=== PATIENT | female | born 1960 | race Caucasian/White ===

== ENCOUNTER 2016-12-28 23:23 | Inpatient (IN) | payer SELFPAY ==
[~2016-12-28] VITALS: Ht 154.9 cm; Wt 50.6 kg
[~2016-12-28 23:23] MED LIST: Z.0.NO CURRENT MEDS
[2016-12-28 23:29] VITALS: BP 89/59; PULSE 90
[2016-12-28] MEDS ORDERED: NALOXONE HCL 2 MG/2 ML VIAL ONE (23:34)
[2016-12-28] MEDS ORDERED: ETOMIDATE 20 MG/10 ML VIAL ONE (23:45)
[2016-12-28] MEDS ORDERED: SUCCINYLCHOLINE CHLORIDE 200 MG/10 ML VIAL ONE (23:45)
[2016-12-28] MEDS ORDERED: SODIUM CHLOR 0.9% 1000 ML INJ 1,000 ML IV ONE (23:53)
[2016-12-29] VITALS (28 sets, daily range): BP systolic 92–183; BP diastolic 70–130; PULSE 74–134; RESP 14–24; TEMP 97.1–99.1; O2SAT 94–100
[2016-12-29] MEDS ORDERED: SODIUM CHLORIDE 0.9% FLUSH 10 ML FLUSH IVF PRN
[2016-12-29] MEDS ORDERED: SUCCINYLCHOLINE CHLORIDE 200 MG/10 ML VIAL IVP ONE
[2016-12-29] MEDS ORDERED: ETOMIDATE 20 MG/10 ML VIAL IVP ONE
[2016-12-29 00:37] LABS: AUTOMATED NEUTROPHIL # 1.6 TH/MM3 (1.8-7.7); BASOPHIL # 0.1 TH/MM3 (0-0.2); BASOPHIL % 1.5 % (0.0-2.0); EOSINOPHIL # 0.1 TH/MM3 (0-0.4); HEMO FLAGS DIFF FINAL; LYMPH % 47.3 % (9.0-44.0); LYMPHOCYTE # 1.9 TH/MM3 (1.0-4.8); MEAN CELL VOLUME 102.4 FL (80.0-100.0); MEAN CORPUSCULAR HEMOGLOBIN 34.8 PG (27.0-34.0); MONO % 8.5 % (0.0-8.0); NEUT % 39.7 % (16.0-70.0); PLATELET COUNT 115 TH/MM3 (150-450); RED BLOOD COUNT 3.71 MIL/MM3 (4.00-5.30); RED CELL DISTRIBUTION WIDTH 12.9 % (11.6-17.2)
[2016-12-29] MEDS ORDERED: ETOMIDATE 20 MG/10 ML VIAL IV PUSH ONE (00:45)
[2016-12-29 00:52] LABS: APTT (PATIENT) 27.4 SEC (24.3-30.1); PROTHROMBIN TIME - PATIENT 10.9 SEC (9.8-11.6)
[2016-12-29 00:53] LABS: AMPHETAMINE, URINE NEG (NEG); BARBITURATES, URINE NEG (NEG); COCAINE, URINE NEG (NEG)
[2016-12-29 00:55] LABS: BACTERIA, URINE RARE /hpf; BLOOD, URINE NEG (NEG); COMMENT (UR) CULT NOT INDICATED; CULTURE IF INDICATED CULT NOT INDICATED; GLUCOSE,URINE NEG (NEG); HYALINE CAST, URINE 11 /lpf (RARE); KETONE, URINE NEG (NEG); MUCUS URINE FEW /lpf (OCC); NITRITE,URINE NEG (NEG); URINE COLOR YELLOW (YELLW/STRAW)
--- NOTE | 2016-12-29 01:03 | RADRPT ---
EXAM DATE/TIME: 12/28/2016 23:49 [place] COMPARISON: No previous studies available for comparison. INDICATIONS : Post intubation. MEDICAL HISTORY : None. SURGICAL HISTORY : None. ENCOUNTER: Initial ACUITY: 1 day PAIN SCORE: Non-responsive. LOCATION: Bilateral chest FINDINGS: A single AP supine view of the chest was obtained and demonstrates an endotracheal tube in place with the tip at the level of the fredy pointed into the right mainstem bronchus. There are no confluent infiltrates or effusions. Nasogastric tube is seen coursing through the esophagus and into the stomac h. The heart size is mildly prominent. There are no confluent infiltrates or effusions. The bony thor ax is intact. Overlying electrocardiogram leads and oxygen tubing are present. CONCLUSION: 1. Interval intubation with endotracheal tube at the level of the fredy pointing to right mainstem b ronchus. This could be withdrawn 2-3 cm. 2. Mild cardiomegaly with no acute cardiopulmonary disease. Matthieu Parada MD on December 29, 2016 at 1:00 Board Certified Radiologist. This report was verified electronically.
[2016-12-29 01:04] LABS: ANION GAP 12 MEQ/L (5-15); AST (GOT) 93 U/L (15-37); BICARBONATE 25.9 MEQ/L (21.0-32.0); BLOOD UREA NITROGEN 5 MG/DL (7-18); CHLORIDE 105 MEQ/L (98-107); GLOMERULAR FILTRATION RATE 108 ML/MIN (>89); MAGNESIUM 1.3 MG/DL (1.5-2.5); SODIUM (NA) 143 MEQ/L (136-145)
[2016-12-29 01:10] LABS: ACETAMINOPHEN LESS THAN 2.0 MCG/ML (10.0-30.0); ALKALINE PHOSPHATASE 59 U/L (45-117); ALT (GPT) 79 U/L (10-53); TOTAL BILIRUBIN ADULT 0.2 MG/DL (0.2-1.0)
[2016-12-29 01:30] LABS: CREATINE KINASE 92 U/L (26-192)
[2016-12-29 01:31] LABS: BLOOD GAS BASE EXCESS -3.2 mmol/L (-2-2); BLOOD GAS CARBOXYHEMOGLOBIN 4.3 % (0-4); BLOOD GAS HCO3 21 mmol/L (22-26); BLOOD GAS METHEMOGLOBIN 0.8 % (0-2); BLOOD GAS O2 HGB SATURATION 94 % (90-100); BLOOD GAS OXYGEN CONTENT 18.5 Vol % (12.0-20.0); BLOOD GAS PCO2 38 mmHg (38-42); BLOOD GAS PO2 233 mmHG (61-120); BLOOD GAS TOTAL HGB 13.6 G/DL (12.0-16.0); TEMP CORR TO 98.6
[2016-12-29 01:32] LABS: CRITICAL VALUE NO; DRAW SITE RT FEMORAL; FIO2 50 %; NUMBER OF ARTERIAL PUNCTURES 1; OXYGEN DEVICE VENTILATOR
[2016-12-29 01:33] LABS: STAT YES
--- NOTE | 2016-12-29 01:40 | PD ---
HPI Chief Complaint: OD/ Ingestion Time Seen by Provider: 23:53 Travel History International Travel<30 days: No Contact w/Intl Traveler<30days: No (travel history is unable to be obtained) History of Present Illness HPI The patient is a 56 year old female who presents to the [facility] emergency department with a history of being found somnolent by her daughter prior to arrival. The patient was found by her daughter. According to ambulance services the patient does have a history of prior overdose. They are unsure whether the patient intentionally tried to harm herself. Her daughter is not available currently for further history on the patient. The patient's history is obtained through the electronic medical record. The patient on arrival is unresponsive. The patient has snoring respirations. The patient is maintaining her O2 saturation, however she has a diminished gag reflex. The patient has minimal response, flexion to painful stimulation. Review of systems was unable to be obtained in this patient. PFSH Past Medical History Narrative Medical The patient's past medical history is obtained through the electronic medical record and consists of tobacco use, acid reflux, daily alcohol intake Medical History: Unable to Obtain Asthma: No Blood Disorders: No Anxiety: Yes Depression: Yes Cancer: No Cardiovascular Problems: No Diminished Hearing: Yes (EAR INFECTION ON EAR DROPS MEDS) GERD: Yes Glaucoma: No Immune Disorder: No Musculoskeletal: No Neurologic: No Psychiatric: Yes Reproductive: No Respiratory: Yes Radiation Therapy: No Thyroid Disease: No ?: Unknown : 2 Para: 2 Miscarriage: 0 : 0 Tubal Ligation: Yes Past Surgical History Narrative Surgical The patient's past surgical history is significant for bilateral tubal ligation. Surgical History: Unable to Obtain Abdominal Surgery: No Cardiac Surgery: No Ear Surgery: No Endocrine Surgery: No Eye Surgery: No Gynecologic Surgery: No Thoracic Surgery: No Social History Alcohol Use: No (unable to obtain) Tobacco Use: No (unable to obtain) Substance Use: No (unable to obtain) Allergies-Medications (Allergen,Severity, Reaction): Coded Allergies: No Known Allergies (Verified , 12/28/16) Reported Meds & Prescriptions Reported Meds & Active Scripts Active Active Prescriptions or Reported Medications Unobtainable Review of Systems ROS Limitations: Unresponsive Physical Exam Narrative General: The patient is a well-developed well-nourished female with snoring respirations on arrival, otherwise in no acute distress. Head and Neck exam: Head is normocephalic atraumatic. Eyes: EOMI, pupils are equal round and reactive to light. Nose: Midline septum with pink mucous membranes Mouth: Dentition unremarkable. Moist mucus membranes. Posterior oropharynx is not erythematous. No tonsillar hypertrophy. Uvula midline. Airway patent. Neck: No palpable lymphadenopathy. No nuchal rigidity. No thyromegaly. Cardiovascular: Regular rate and rhythm without murmurs, gallops, or rubs. No pulse deficit to the extremities and simultaneous auscultation and palpation of her radial artery. Lungs: Clear to auscultation bilaterally. No wheezes, rhonchi, or rales. She is noted to have sonorous respirations. Abdomen: Soft, without tenderness to palpation in all 4 quadrants of the abdomen. No guarding, rebound, or rigidity. Normal bowel sounds are audible. No tenderness on palpation of McBurney's point. Extremities: No clubbing, cyanosis, or edema. 2+ pulses in all 4 extremities. Back: No costovertebral angle tenderness to palpation. Neurologic Exam: The patient is somnolent on examination with a diminished gag reflex. No evidence of facial asymmetry. The patient flexes slightly to painful stimulation, otherwise she does not open her eyes or move. Skin Exam: No rash noted. Intact skin that is warm and dry. Data Data Last Documented VS Vital Signs Date Time Temp Pulse Resp B/P Pulse Ox O2 Delivery O2 Flow Rate FiO2 12/29/16 01:36 83 16 156/117 100 Ventilator 35 12/29/16 00:13 10 Orders Naloxone Inj (Narcan Inj) (12/28/16 23:34) Succinylcholine Inj (Quelicin Inj) (12/28/16 23:45) Etomidate Inj (Amidate Inj) (12/28/16 23:45) Chest, Single Ap (12/28/16 23:53) Arterial Blood Gas (Abg) (12/28/16 23:53) Ecg Monitoring (12/28/16 23:53) Iv Access Insert/Monitor (12/28/16 23:53) Oximetry (12/28/16 23:53) Etomidate Inj (Amidate Inj) (12/29/16 00:00) Succinylcholine Inj (Quelicin Inj) (12/29/16 00:00) Sodium Chloride 0.9% Flush (Ns Flush) (12/29/16 00:00) Sodium Chlor 0.9% 1000 Ml Inj (Ns 1000 M (12/28/16 23:53) Electrocardiogram (12/28/16 23:53) Complete Blood Count With Diff (12/28/16 23:53) Comprehensive Metabolic Panel (12/28/16 23:53) Creatine Kinase (Cpk) (12/28/16 23:53) Ckmb (Isoenzyme) Profile (12/28/16 23:53) Troponin I (12/28/16 23:53) B-Type Natriuretic Peptide (12/28/16 23:53) Prothrombin Time / Inr (Pt) (12/28/16 23:53) Act Partial Throm Time (Ptt) (12/28/16 23:53) Lipase (12/28/16 23:53) Urinalysis - C+S If Indicated (12/28/16 23:53) Magnesium (Mg) (12/28/16 23:53) Ammonia (12/28/16 23:53) Ct Brain W/O Iv Contrast(Rout) (12/28/16 23:53) Urinary Catheter Insert/Apply (12/28/16 23:53) Trang-Gastric Tube Insert/Mon (12/28/16 23:53) Drug Screen, Random Urine (12/28/16 23:53) Alcohol (Ethanol) (12/28/16 23:53) Salicylates (Aspirin) (12/28/16 23:53) Tylenol (Acetaminophen) (12/28/16 23:53) Etomidate Inj (Amidate Inj) (12/29/16 00:45) Propofol 1000 Mg/100 Ml Inj (Diprivan 10 (12/29/16 01:45) ^ Infusion (12/29/16 01:33) RASS (12/29/16 01:33) Neurological Rass Scale TIANA.Q2H (12/29/16 01:33) Midazolam Inj (Versed Inj) (12/29/16 01:45) Potassium Chlor 20 Meq Premix (Kcl 20 Me (12/29/16 01:45) Admit Order (Ed Use Only) (12/29/16 01:37) Phosphorus (Po4) (12/29/16 00:15) Labs Laboratory Tests Test 12/29/16 12/29/16 00:15 01:05 White Blood Count 4.0 TH/MM3 Red Blood Count 3.71 MIL/MM3 Hemoglobin 12.9 GM/DL Hematocrit 38.0 % Mean Corpuscular Volume 102.4 FL Mean Corpuscular Hemoglobin 34.8 PG Mean Corpuscular Hemoglobin 34.0 % Concent Red Cell Distribution Width 12.9 % Platelet Count 115 TH/MM3 Mean Platelet Volume 8.6 FL Neutrophils (%) (Auto) 39.7 % Lymphocytes (%) (Auto) 47.3 % Monocytes (%) (Auto) 8.5 % Eosinophils (%) (Auto) 3.0 % Basophils (%) (Auto) 1.5 % Neutrophils # (Auto) 1.6 TH/MM3 Lymphocytes # (Auto) 1.9 TH/MM3 Monocytes # (Auto) 0.3 TH/MM3 Eosinophils # (Auto) 0.1 TH/MM3 Basophils # (Auto) 0.1 TH/MM3 CBC Comment DIFF FINAL Differential Comment Prothrombin Time 10.9 SEC Prothromb Time International 1.0 RATIO Ratio Activated Partial 27.4 SEC Thromboplast Time Urine Color YELLOW Urine Turbidity CLEAR Urine pH 6.0 Urine Specific [place] 1.014 Urine Protein TRACE mg/dL Urine Glucose (UA) NEG mg/dL Urine Ketones NEG mg/dL Urine Occult Blood NEG Urine Nitrite NEG Urine Bilirubin NEG Urine Urobilinogen LESS THAN 2.0 MG/DL Urine Leukocyte Esterase NEG Urine RBC 1 /hpf Urine WBC 2 /hpf Urine Bacteria RARE /hpf Urine Hyaline Casts 11 /lpf Urine Mucus FEW /lpf Microscopic Urinalysis Comment CULT NOT INDICATED Sodium Level 143 MEQ/L Potassium Level 3.0 MEQ/L Chloride Level 105 MEQ/L Carbon Dioxide Level 25.9 MEQ/L Anion Gap 12 MEQ/L Blood Urea Nitrogen 5 MG/DL Creatinine 0.58 MG/DL Estimat Glomerular Filtration 108 ML/MIN Rate Random Glucose 77 MG/DL Calcium Level 8.0 MG/DL Phosphorus Level 3.4 MG/DL Magnesium Level 1.3 MG/DL Total Bilirubin 0.2 MG/DL Aspartate Amino Transf 93 U/L (AST/SGOT) Alanine Aminotransferase 79 U/L (ALT/SGPT) Alkaline Phosphatase 59 U/L Ammonia 29 MCMOL/L Total Creatine Kinase 92 U/L Troponin I 0.38 NG/ML B-Type Natriuretic Peptide 63 PG/ML Total Protein 7.0 GM/DL Albumin 3.4 GM/DL Lipase 139 U/L Salicylates Level 3.3 MG/DL Urine Opiates Screen NEG Acetaminophen Level LESS THAN 2.0 MCG/ML Urine Barbiturates Screen NEG Urine Amphetamines Screen NEG Urine Benzodiazepines Screen NEG Urine Cocaine Screen NEG Urine Cannabinoids Screen NEG Ethyl Alcohol Level 295 MG/DL Blood Gas Puncture Site RT FEMORAL Blood Gas Patient Temperature 98.6 Blood Gas HCO3 21 mmol/L Blood Gas Base Excess -3.2 mmol/L Blood Gas Oxygen Saturation 94 % Arterial Blood pH 7.37 Arterial Blood Partial 38 mmHg Pressure CO2 Arterial Blood Partial 233 mmHG Pressure O2 Arterial Blood Oxygen Content 18.5 Vol % Arterial Blood 4.3 % Carboxyhemoglobin Arterial Blood Methemoglobin 0.8 % Blood Gas Hemoglobin 13.6 G/DL Oxygen Delivery Device VENTILATOR Blood Gas Ventilator Setting Blood Gas Inspired Oxygen 50 % [facility] Medical Decision Making Medical Screen Exam Complete: Yes Emergency Medical Condition: Yes Medical Record Reviewed: Yes Interpretation(s) Last Impressions Head CT 12/28/162352 Signed Impressions: Service Date/Time: Thursday, December 29, 2016 06:13 - CONCLUSION: 1. No acute hemorrhage, mass or infarction. 2. Mucosal thickening in the ethmoidal air cells. Matthieu Parada MD Chest X-Ray 12/28/16 174 Signed Impressions: Service Date/Time: Wednesday, December 28, 2016 23:49 - CONCLUSION: 1. Interval intubation with endotracheal tube at the level of the fredy pointing to right mainstem bronchus. This could be withdrawn 2-3 cm. 2. Mild cardiomegaly with no acute cardiopulmonary disease. Matthieu Parada MD Differential Diagnosis Intracranial hemorrhage, versus intracranial mass, versus metabolic encephalopathy, versus intentional overdose, versus accidental overdose Narrative Course During the course of the patients emergency department visit, the patients history, examination, and differential diagnosis were reviewed with the patient. The patient had IV access obtained and blood work sent for analysis. The patient's electronic magento web developer with oximetry and blood pressure monitoring. Ambulance services initially reported that the patient had a response to Narcan, therefore Narcan 2 mg IV was given 1. The patient had no significant response to this administration. The patient was prepped for RSI. The patient was initially provided normal saline 1 L IV fluid bolus. The patient was given etomidate and succinylcholine for intubation. After intubation, the patient had an OG tube placed. The patient also had Toscano catheter placed to gravity. The patients laboratory studies were reviewed and remarkable for a white count of 4, hemoglobin 12.9, platelets 115 with 47.3 lymphocytes, monocytes 8.5, CMP is remarkable for potassium of 3, BUN 5, calcium 8.0, magnesium 1.3, AST 93, ALT 79, CPK is 92, troponin I 0.38, BNP is 63, lipase 139, ammonia level is 29, PT PTT within normal limits. Urine drug screen is negative, acetaminophen less than 2, salicylate 3.3, alcohol level CCXCV. ABG reveals a pH of 7.37, PCO2 38 , O2 233, bicarbonate 21. This was done while the patient was on a ventilator. Her FiO2 was decreased down to 35%. Urinalysis showed rare bacteria, otherwise unremarkable Radiology studies were reviewed and remarkable for a chest x-ray that shows interval intubation with endotracheal tube at the level of the fredy pointing to the right mainstem bronchus this could be withdrawn 2-3 cm. Mild cardiomegaly with no acute cardiopulmonary disease. The patient's endotracheal tube was withdrawn 2-3 cm by respiratory therapy. The patient began to cough and gag against the ventilator and endotracheal tube. The patient was provided propofol for sedation on the ventilator. The patients results were discussed with the patient, including the plan of care. I explained that further testing and/ or monitoring is indicated based on the patients history, examination, and/ or laboratory findings. Therefore, I recommended admission for additional evaluation. The patient expressed understanding and was agreeable with this plan. The patient was admitted to the hospital in guarded condition and sent to a bed under the care of the services advisor. Critical Care Narrative Aggregate critical care time was 33 minutes. Time to perform other separately billable procedures was not included in the critical care time. My time did not include minutes spent treating any other patients simultaneously or on activities that did not directly contribute to the patient's treatment. The services I provided to this patient were to treat and/or prevent clinically significant deterioration that could result in: Respiratory failure, hypoxic brain injury I provided critical care services requiring my management, as noted below: Chart data review, documentation time, medication orders and management, vital sign assessments/reviewing monitor data, ordering and reviewing lab tests, ordering and interpreting/reviewing x-rays and diagnostic studies, care of the patient and discussion of the patient with the admitting physicians. Procedures Procedure Narrative The patient was put in optimal position for the procedure. Rapid sequence intubation was initiated by me using 20 milligrams of etomidate IV and 100 milligrams of succinylcholine IV. The patient was intubated with a 8 cuffed endotracheal tube while using C-Mac. Tube placement was confirmed by visualization of the tube and balloon passing through the cords, capnometry and subsequent chest x-ray. Breath sounds were equal and well aerated bilaterally postintubation. No breath sounds over stomach. Patient tolerated procedure well. Physician Communication Physician Communication The patient's case was discussed with Dr. High who did agree to admit the patient for further evaluation and treatment at this time. Diagnosis Primary Impression: Altered mental status Qualified Code: R40.1 - Stupor Additional Impression: Alcohol intoxication Qualified Code: F10.929 - Alcohol intoxication, with unspecified complication Admitting Information Admitting Physician Requests: Admit Scripts Unable to Obtain Active Prescriptions or Reported Meds Rosa Miller MD Dec 29, 2016 01:40
[2016-12-29] MEDS ORDERED: MAGNESIUM OXIDE 400 MG TAB PO PRN (01:45)
[2016-12-29] MEDS ORDERED: SODIUM CHLORIDE 0.9% FLUSH 10 ML FLUSH PRN (01:45)
[2016-12-29] MEDS ORDERED: ACETAMINOPHEN 325 MG TAB PO PRN (01:45)
[2016-12-29] MEDS ORDERED: POTASSIUM CHLOR 20 MEQ PREMIX 100 ML IV PRN ×2 (01:45)
[2016-12-29] MEDS ORDERED: MISCELLANEOUS NURSING INFORMATION XX SCH (01:45)
[2016-12-29] MEDS ORDERED: POTASSIUM CHLORIDE 25 MEQ EFFERVESCENT TAB PO PRN (01:45)
[2016-12-29] MEDS ORDERED: SODIUM PHOSPHATE INJ 30 MMOL in SODIUM CHLOR 0.9% 250 ML INJ 240 ML IV PRN (01:45)
[2016-12-29] MEDS ORDERED: SENNOSIDES 8.6 MG TAB PO PRN (01:45)
[2016-12-29] MEDS ORDERED: POTASSIUM CHLOR 20 MEQ PREMIX 100 ML IV ONE (01:45)
[2016-12-29] MEDS ORDERED: LACTULOSE SYRUP 20 GM/30 ML CUP PO PRN (01:45)
[2016-12-29] MEDS ORDERED: MAGNESIUM SULFATE INJ 2 GM in SODIUM CHLORIDE 0.9% INJ 96 ML IV PRN (01:45)
[2016-12-29] MEDS ORDERED: PROPOFOL 1000 MG/100 ML INJ 100 ML IV SCH ×2 (01:45)
[2016-12-29] MEDS ORDERED: POTASSIUM PHOSPHATE MONOBASIC 500 MG TAB PO/TUBE PRN (01:45)
[2016-12-29] MEDS ORDERED: POTASSIUM PHOSPHATE MONOBASIC 500 MG TAB PO PRN (01:45)
[2016-12-29] MEDS ORDERED: CHLORHEXIDINE GLUCONATE 2 % 1 PACK (2 CLOTHS) TOP PRN (01:45)
[2016-12-29] MEDS ORDERED: POTASSIUM PHOSPHATE INJ 30 MMOL in SODIUM CHLOR 0.9% 250 ML INJ 250 ML IV PRN (01:45)
[2016-12-29] MEDS ORDERED: POTASSIUM CHLOR 40 MEQ PREMIX 100 ML IV PRN ×2 (01:45)
[2016-12-29] MEDS ORDERED: MAGNESIUM SULFATE INJ 4 GM in SODIUM CHLORIDE 0.9% INJ 92 ML IV PRN (01:45)
[2016-12-29] MEDS ORDERED: BISACODYL 10 MG SUPP RECTAL PRN (01:45)
[2016-12-29] MEDS ORDERED: MORPHINE SULFATE 4 MG/ML INJ IV PRN (01:45)
[2016-12-29] MEDS ORDERED: RESP: ALBUTEROL 2.5 MG/IPRATROPIUM 0.5 MG NEB (PRN) INH (01:45)
[2016-12-29] MEDS ORDERED: MAGNESIUM HYDROXIDE SUSP 30 ML CUP PO PRN (01:45)
[2016-12-29] MEDS ORDERED: MIDAZOLAM HCL 2 MG/2 ML VIAL IV PUSH ONE (01:45)
--- NOTE | 2016-12-29 01:48 | HHI.HP ---
HPI Service Critical Care Medicine Primary Care Physician Sampson Perez M.D. Admission Diagnosis AMS, Etoh intoxication Diagnosis: Travel History International Travel<30 Days: No Contact w/Intl Traveler <30 Da: No Traveled to Known Affected Are: No History of Present Illness 56-year-old female with previous history of intentional overdose 7 years ago, history of daily alcohol use, was found by her daughter unresponsive. Per daughter she wasn't arousable to painful stimuli and EMS was called. The daughter found open bottle of Wellbutrin that was prescribed in 2013; however she's not sure how many pills were there before if any. Patient was intubated in the emergency department for an airway protection. Review of Systems ROS Unobtainable patient is unresponsive and intubated Past Family Social History Allergies: Coded Allergies: No Known Allergies (Verified , 12/28/16) Past Medical History GERD History of intentional overdose Diverticulosis Past Surgical History Unobtainable Reported Medications Unobtainable Active Ordered Medications Current Medications Medications (Trade) Dose Ordered Sig/Yasmine Route PRN Reason Start Time Stop Time Status Last Admin Dose Admin Sodium Chloride 2 ml 2 ml UNSCH PRN IVF FLUSH AFTER USING IV ACCESS 12/29/16 00:00 Propofol 100 ml @ 0 mls/hr TITRATE IV 12/29/16 01:45 12/29/16 01:45 Potassium Chloride 100 ml @ 50 mls/hr BOLUS ONCE IV 12/29/16 01:45 12/29/16 03:44 12/29/16 01:58 Potassium Chloride 100 ml @ 50 mls/hr Q2H PRN IV For Potassium 2.8 - 3.2 mEq/L 12/29/16 01:45 Potassium Chloride (KCl 20 Meq Premix Inj) 100 ml @ 50 mls/hr Q2H PRN IV For Potassium 2.8 - 3.2 mEq/L 12/29/16 01:45 Potassium Bicarb/ Potassium Chloride 50 meq 50 meq UNSCH PRN PO For Potassium 3.3 - 3.5 mEq/L 12/29/16 01:45 Potassium Chloride 100 ml @ 25 mls/hr UNSCH PRN IV For Potassium 3.3 - 3.5 mEq/L 12/29/16 01:45 Potassium Chloride 100 ml @ 50 mls/hr Q2H PRN IV For Potassium 3.3 - 3.5 mEq/L 12/29/16 01:45 Magnesium Sulfate/ Sodium Chloride (Magnesium Sulfate Inj/NS Inj) 100 ml @ 50 mls/hr UNSCH PRN IV For Magnesium 0.9 - 1.1 mg/dL 12/29/16 01:45 Magnesium Oxide 800 mg 800 mg UNSCH PRN PO For Magnesium 1.2 - 1.6 mg/dL 12/29/16 01:45 Magnesium Sulfate/ Sodium Chloride (Magnesium Sulfate Inj/NS Inj) 100 ml @ 50 mls/hr UNSCH PRN IV For Magnesium 1.2 - 1.6 mg/dL 12/29/16 01:45 Potassium Phosphate 2000 mg 2,000 mg Q4H PRN PO For Phosphorus < 2.5 mg/dL 12/29/16 01:45 Sodium Phosphate/ Sodium Chloride (Sodium Phosphate Inj/NS 250 ml Inj) 250 ml @ 42 mls/hr UNSCH PRN IV For Phosphorus < 2.5 mg/dL 12/29/16 01:45 Potassium Phosphate 2000 mg 2,000 mg UNSCH PRN PO/TUBE SEE LABEL COMMENTS 12/29/16 01:45 Potassium Phosphate 30 mmol/ Sodium Chloride 260 ml @ 42 mls/hr UNSCH PRN IV SEE LABEL COMMENTS 12/29/16 01:45 Sodium Chloride (NS 1000 ml Inj) 1,000 ml @ 124 mls/hr Q8H4M IV 12/29/16 01:43 12/29/16 01:58 Sodium Chloride (NS Flush) 2 ml UNSCH PRN .XX FLUSH AFTER USING IV ACCESS 12/29/16 01:45 Sodium Chloride (NS Flush) 2 ml BID .XX 12/29/16 09:00 Acetaminophen (Tylenol) 650 mg Q6H PRN PO PAIN 1-10 AND/OR FEVER >101F 12/29/16 01:45 Morphine Sulfate (Morphine Inj) 2 mg Q2H PRN IV PAIN SCALE 6 TO 10 12/29/16 01:45 Famotidine (Pepcid Inj) 20 mg Q12HR IV PUSH 12/29/16 09:00 Lorazepam (Ativan Inj) 1 mg Q1H PRN IV Agitation/Sedation 12/29/16 01:45 Heparin Sodium (Porcine) (Heparin Inj) 5,000 units Q8HR SQ 12/29/16 06:00 Miscellaneous Information 1 Q361D XX 12/29/16 01:45 Chlorhexidine Gluconate (Chlorhexidine 2% Cloth) 3 pack Taper DAILY@04 TOP 12/29/16 04:00 12/25/17 03:59 Chlorhexidine Gluconate (Chlorhexidine 2% Cloth) 3 pack UNSCH PRN TOP HYGIENIC CARE 12/29/16 01:45 Senna/Docusate Sodium (Barbie-Colace) 1 tab BID PO 12/29/16 09:00 Magnesium Hydroxide (Milk Of Magnesia Liq) 30 ml Q12H PRN PO MILD - MODERATE CONSTIPATION 12/29/16 01:45 Sennosides (Senokot) 17.2 mg Q12H PRN PO MODERATE - SEVERE CONSTIPATION 12/29/16 01:45 Bisacodyl (Dulcolax Supp) 10 mg DAILY PRN RECTAL SEVERE CONSITIPATION 12/29/16 01:45 Lactulose 30 ml 30 ml DAILY PRN PO SEVERE CONSITIPATION 12/29/16 01:45 Propofol (Diprivan 1000 Mg/100ml Inj) 100 ml @ 0 mls/hr TITRATE IV 12/29/16 01:45 Family History Father had CABG at 62 Sister had cervical cancer Social History Per family report she drinks daily, smokes one pack per day, no illicit drug abuse Physical Exam Vital Signs Vital Signs Date Time Temp Pulse Resp B/P Pulse Ox O2 Delivery O2 Flow Rate FiO2 12/29/16 01:40 100 35 12/29/16 01:36 83 16 156/117 100 Ventilator 35 12/29/16 00:31 81 16 147/100 100 Ventilator 50 12/29/16 00:26 50 12/29/16 00:13 99 50 12/29/16 00:13 134 18 183/130 99 Nasal Cannula 10 12/29/16 00:10 134 18 160/105 97 Nasal Cannula 10 12/29/16 00:00 98 Room Air 12/28/16 23:34 12 99 12/28/16 23:29 90 89/59 Physical Exam GENERAL: Middle-aged woman elderly-appearing sedated and intubated SKIN: Warm and dry. HEAD: Normocephalic. EYES: No scleral icterus. No injection or drainage. NECK: Supple, trachea midline. No JVD or lymphadenopathy. Intubated CARDIOVASCULAR: Regular rate and rhythm without murmurs, gallops, or rubs. RESPIRATORY: Breath sounds equal bilaterally. No accessory muscle use. GASTROINTESTINAL: Abdomen soft, non-tender, nondistended. MUSCULOSKELETAL: No cyanosis, or edema. BACK: Nontender without obvious deformity. No CVA tenderness. NEURO EXAM: Mental Status: The patient is sedated and intubated. Cranial Nerves: Visual acuity unable to examine. Pupils are round, 2 mm and briskly reactive to light. Extraocular movements unable to examine. Reflexes: Biceps, brachioradialis, triceps, patellar, and Achilles are 2/4 bilaterally. No clonus. Plantar reflex is downward bilaterally. Sensation: Sensation unable to examine Motor: Good muscle tone. Localizes briskly to pain from all 4 extremities Cerebellar: Unable to examine Laboratory Laboratory Tests Test 12/29/16 12/29/16 00:15 01:05 White Blood Count 4.0 Red Blood Count 3.71 Hemoglobin 12.9 Hematocrit 38.0 Mean Corpuscular Volume 102.4 Mean Corpuscular Hemoglobin 34.8 Mean Corpuscular Hemoglobin 34.0 Concent Red Cell Distribution Width 12.9 Platelet Count 115 Mean Platelet Volume 8.6 Neutrophils (%) (Auto) 39.7 Lymphocytes (%) (Auto) 47.3 Monocytes (%) (Auto) 8.5 Eosinophils (%) (Auto) 3.0 Basophils (%) (Auto) 1.5 Neutrophils # (Auto) 1.6 Lymphocytes # (Auto) 1.9 Monocytes # (Auto) 0.3 Eosinophils # (Auto) 0.1 Basophils # (Auto) 0.1 CBC Comment DIFF FINAL Differential Comment Prothrombin Time 10.9 Prothromb Time International 1.0 Ratio Activated Partial 27.4 Thromboplast Time Urine Color YELLOW Urine Turbidity CLEAR Urine pH 6.0 Urine Specific [place] 1.014 Urine Protein TRACE Urine Glucose (UA) NEG Urine Ketones NEG Urine Occult Blood NEG Urine Nitrite NEG Urine Bilirubin NEG Urine Urobilinogen LESS THAN 2.0 Urine Leukocyte Esterase NEG Urine RBC 1 Urine WBC 2 Urine Bacteria RARE Urine Hyaline Casts 11 Urine Mucus FEW Microscopic Urinalysis Comment CULT NOT INDICATED Sodium Level 143 Potassium Level 3.0 Chloride Level 105 Carbon Dioxide Level 25.9 Anion Gap 12 Blood Urea Nitrogen 5 Creatinine 0.58 Estimat Glomerular Filtration 108 Rate Random Glucose 77 Calcium Level 8.0 Magnesium Level 1.3 Total Bilirubin 0.2 Aspartate Amino Transf 93 (AST/SGOT) Alanine Aminotransferase 79 (ALT/SGPT) Alkaline Phosphatase 59 Ammonia 29 Total Creatine Kinase 92 Troponin I 0.38 B-Type Natriuretic Peptide 63 Total Protein 7.0 Albumin 3.4 Lipase 139 Salicylates Level 3.3 Urine Opiates Screen NEG Acetaminophen Level LESS THAN 2.0 Urine Barbiturates Screen NEG Urine Amphetamines Screen NEG Urine Benzodiazepines Screen NEG Urine Cocaine Screen NEG Urine Cannabinoids Screen NEG Ethyl Alcohol Level 295 Blood Gas Puncture Site RT FEMORAL Blood Gas Patient Temperature 98.6 Blood Gas HCO3 21 Blood Gas Base Excess -3.2 Blood Gas Oxygen Saturation 94 Arterial Blood pH 7.37 Arterial Blood Partial 38 Pressure CO2 Arterial Blood Partial 233 Pressure O2 Arterial Blood Oxygen Content 18.5 Arterial Blood 4.3 Carboxyhemoglobin Arterial Blood Methemoglobin 0.8 Blood Gas Hemoglobin 13.6 Oxygen Delivery Device VENTILATOR Blood Gas Ventilator Setting Blood Gas Inspired Oxygen 50 Result Diagram: 12/29/16 0015 12/29/16 0015 Imaging Last 24 hours Impressions Chest X-Ray 12/28/16 [id number] Signed Impressions: Service Date/Time: Wednesday, December 28, 2016 23:49 - CONCLUSION: 1. Interval intubation with endotracheal tube at the level of the fredy pointing to right mainstem bronchus. This could be withdrawn 2-3 cm. 2. Mild cardiomegaly with no acute cardiopulmonary disease. Matthieu Parada MD Assessment and Plan Assessment and Plan Respiratory failure - Intubated for an airway protection - No weaning until neurologically improved - CXR and ABG a.m. - Vent bundle Altered mental status - History of intentional overdose - Follow-up toxicology screen - CT head pending Hypokalemia - Electrolyte replacement per ICU protocol GERD - IV Pepcid Troponin leak - Tachycardia??? - EKG without signs of acute ischemia - Series of troponins and EKGs - Follow-up trend DVT GI prophylaxis - Teds SCDs subcutaneous heparin - Pepcid Critical Care: The total critical care time was 35 minutes. Time to perform other separately billable procedures was not included in the critical care time. Wilian High MD Dec 29, 2016 01:48
[2016-12-29] MEDS: SODIUM CHLOR 0.9% 1000 ML INJ 1,000 ML IV SCH ×4 (01:58→23:00)
[2016-12-29] MEDS ORDERED: NALOXONE HCL 2 MG/2 ML VIAL IV PUSH ONE (03:45)
[2016-12-29] MEDS: CHLORHEXIDINE GLUCONATE 2 % 1 PACK (2 CLOTHS) TOP SCH (04:00)
[2016-12-29] MEDS: RESP: ALBUTEROL 2.5 MG/IPRATROPIUM 0.5 MG NEB (SCH) INH ×4 (05:01→20:42)
[2016-12-29] MEDS ORDERED: MULTIVITAMIN INJ 10 ML, THIAMINE INJ 100 MG, FOLIC ACID INJ 1 MG in SODIUM CHLORID 0.9%... IV ONE (05:15)
[2016-12-29] MEDS: LORazepam 2 MG/ML VIAL IV PRN ×3 (05:41→14:30)
[2016-12-29] MEDS: HEPARIN SODIUM - SQ 10,000 UNITS/ML VIAL SQ SCH ×3 (05:57→20:09)
--- NOTE | 2016-12-29 06:28 | RADRPT ---
EXAM DATE/TIME: 12/29/2016 06:13 [facility] COMPARISON: No previous studies available for comparison. INDICATIONS : Altered mental status. Possible overdose. RADIATION DOSE: 56.35 CTDIvol (mGy) MEDICAL HISTORY : Non-responsive. SURGICAL HISTORY : Non-responsive. ENCOUNTER: Initial ACUITY: 1 day PAIN SCALE: Non-responsive LOCATION: cranial TECHNIQUE: Multiple contiguous axial images were obtained of the head. Using automated exposure control and adj ustment of the mA and/or kV according to patient size, radiation dose was kept as low as reasonably a chievable to obtain optimal diagnostic quality images. DICOM format image data is available electro nically for review and comparison. FINDINGS: CEREBRUM: The ventricles are normal for age. No evidence of midline shift, mass lesion, hemorrhage or acute in farction. No extra-axial fluid collections are seen. POSTERIOR FOSSA: The cerebellum and brainstem are intact. The 4th ventricle is midline. The cerebellopontine angle i s unremarkable. EXTRACRANIAL: The visualized portion of the orbits is intact. There is mucosal thickening in the ethmoidal air cell s bilaterally. SKULL: The calvaria is intact. No evidence of skull fracture. CONCLUSION: 1. No acute hemorrhage, mass or infarction. 2. Mucosal thickening in the ethmoidal air cells. Matthieu Parada MD on December 29, 2016 at 6:25 Board Certified Radiologist. This report was verified electronically.
[2016-12-29] MEDS: SODIUM CHLORIDE 0.9% FLUSH 10 ML FLUSH SCH ×2 (09:00→20:11)
--- NOTE | 2016-12-29 09:04 | EKG ---
Date Performed: 12/29/2016 Time Performed: 03:40:48 PTAGE: 56 years EKG: Sinus rhythm MARKED LEFT AXIS DEVIATION INFERIOR MYOCARDIAL INFARCTION ABNORMAL ECG PREVIOUS TRACING : 12/29/2016 02.34 DOCTOR: Amanuel Blake Interpretating Date/Time 12/29/2016 09:02:58
--- NOTE | 2016-12-29 09:05 | EKG ---
Date Performed: 12/29/2016 Time Performed: 02:34:22 PTAGE: 56 years EKG: Sinus rhythm NORMAL ECG PREVIOUS TRACING : 12/28/2016 23.33 DOCTOR: Amanuel Blake Interpretating Date/Time 12/29/2016 09:05:17
--- NOTE | 2016-12-29 09:08 | EKG ---
Date Performed: 12/28/2016 Time Performed: 23:33:11 PTAGE: 56 years EKG: Sinus rhythm NORMAL ECG PREVIOUS TRACING : 01/15/2012 22.42 DOCTOR: Amanuel Blake Interpretating Date/Time 12/29/2016 09:07:43
[2016-12-29] MEDS: DOCUSATE SODIUM 50 MG/SENNA 8.6 MG TAB PO SCH ×2 (09:09→21:00)
[2016-12-29] MEDS: FAMOTIDINE 20 MG/2 ML VIAL IV PUSH SCH ×2 (09:09→20:09)
--- NOTE | 2016-12-29 12:55 | HHI.CCPN ---
Subjective Remarks/Hospital Course 56-year-old female with previous history of intentional overdose 7 years ago, history of daily alcohol use, was found by her daughter unresponsive. Per daughter she wasn't arousable to painful stimuli and EMS was called. The daughter found open bottle of Wellbutrin that was prescribed in 2013; however she's not sure how many pills were there before if any. Patient was intubated in the emergency department for an airway protection. 12/29: Alert, tremulous. Will extubate. Anticipate withdrawal and requirement for aggressive benzo rx. Objective Vital Signs Date Time Temp Pulse Resp B/P Pulse Ox O2 Delivery O2 Flow Rate FiO2 12/29/16 12:30 98.1 103 14 113/78 98 12/29/16 12:25 Room Air 12/29/16 11:35 28 12/29/16 00:13 10 Result Diagram: 12/29/16 0015 12/29/16 0015 Other Results Laboratory Tests Test 12/29/16 01:05 Blood Gas Puncture Site RT FEMORAL Blood Gas Patient Temperature 98.6 Blood Gas HCO3 21 mmol/L (22-26) Blood Gas Base Excess -3.2 mmol/L (-2-2) Blood Gas Oxygen Saturation 94 % (90-100) Arterial Blood pH 7.37 (7.380-7.420) Arterial Blood Partial 38 mmHg (38-42) Pressure CO2 Arterial Blood Partial 233 mmHG Pressure O2 (61-120) Arterial Blood Oxygen Content 18.5 Vol % (12.0-20.0) Arterial Blood 4.3 % (0-4) Carboxyhemoglobin Arterial Blood Methemoglobin 0.8 % (0-2) Blood Gas Hemoglobin 13.6 G/DL (12.0-16.0) Oxygen Delivery Device VENTILATOR Blood Gas Ventilator Setting Blood Gas Inspired Oxygen 50 % Imaging Last 24 hours Impressions Chest X-Ray 12/28/16 [id number] Signed Impressions: Service Date/Time: Wednesday, December 28, 2016 23:49 - CONCLUSION: 1. Interval intubation with endotracheal tube at the level of the fredy pointing to right mainstem bronchus. This could be withdrawn 2-3 cm. 2. Mild cardiomegaly with no acute cardiopulmonary disease. Matthieu Parada MD Objective Remarks GENERAL: Middle-aged woman, trembling. SKIN: Warm and dry. HEAD: Normocephalic. NECK: Supple, trachea midline. Airway widely patent. CARDIOVASCULAR: Regular rate and rhythm without murmurs, gallops, or rubs. RESPIRATORY: Breath sounds equal bilaterally. Clear. GASTROINTESTINAL: Abdomen soft, non-tender, nondistended. BS active. MUSCULOSKELETAL: No cyanosis, or edema. BACK: Nontender without obvious deformity. No CVA tenderness. NEURO EXAM: Conversant, anxious. O X 3. Moves 4 limbs with purpose. Tremors both hands. A/P Assessment and Plan Respiratory failure - Intubated for an airway protection - No weaning until neurologically improved - Extubate. Altered mental status - History of intentional overdose - Follow-up toxicology screen - CT head pending -> NL Hypokalemia - Electrolyte replacement per ICU protocol GERD - IV Pepcid Troponin leak - Tachycardia??? - EKG without signs of acute ischemia - Series of troponins and EKGs DVT GI prophylaxis - Teds SCDs subcutaneous heparin - Pepcid Overall impression: Alcohol poisoning with possible contribution of Wellbutrin. Anticipate complicated withdrawal. Start benzo immediately - CIWA protol after calm is obtained. Ulises Fitzgerald MD Dec 29, 2016 12:55
[2016-12-29] MEDS ORDERED: LORazepam 2 MG TAB PO PRN (13:00)
[2016-12-29] MEDS ORDERED: LORazepam 2 MG/ML VIAL IV PUSH PRN (13:00)
[2016-12-29] MEDS ORDERED: LORazepam 1 MG TAB PO PRN (13:00)
[2016-12-29] MEDS ORDERED: FLUMAZENIL 0.5 MG/5 ML VIAL IV PUSH PRN (13:00)
[2016-12-29] MEDS: LORazepam 2 MG/ML VIAL IV PUSH PRN ×5 (13:19→21:44)
[2016-12-30] VITALS (10 sets, daily range): BP systolic 124–143; BP diastolic 88–103; PULSE 108–123; RESP 18–24; TEMP 97.7–98.9; O2SAT 96–98
[2016-12-30] MEDS: LORazepam 2 MG/ML VIAL IV PUSH PRN ×3 (00:33→22:26)
[2016-12-30] MEDS: RESP: ALBUTEROL 2.5 MG/IPRATROPIUM 0.5 MG NEB (SCH) INH ×4 (03:42→19:58)
[2016-12-30] MEDS: CHLORHEXIDINE GLUCONATE 2 % 1 PACK (2 CLOTHS) TOP SCH (04:00)
[2016-12-30] MEDS: HEPARIN SODIUM - SQ 10,000 UNITS/ML VIAL SQ SCH ×3 (05:16→21:18)
--- NOTE | 2016-12-30 05:33 | RADRPT ---
EXAM DATE/TIME: 12/30/2016 05:21 [facility] COMPARISON: CHEST SINGLE AP, December 28, 2016, 23:49. INDICATIONS : Shortness of breath MEDICAL HISTORY : None. SURGICAL HISTORY : None. ENCOUNTER: Subsequent ACUITY: 3 days PAIN SCORE: Non-responsive. LOCATION: Bilateral chest FINDINGS: A single view of the chest demonstrates the lungs to be symmetrically aerated without evidence of mas s, infiltrate or effusion. The cardiomediastinal contours are unremarkable. Osseous structures are intact. CONCLUSION: No acute disease. Matthieu Parada MD on December 30, 2016 at 5:32 Board Certified Radiologist. This report was verified electronically.
[2016-12-30 05:51] LABS: AUTOMATED NEUTROPHIL # 3.7 TH/MM3 (1.8-7.7); BASOPHIL % 0.7 % (0.0-2.0); EOSINOPHIL # 0.1 TH/MM3 (0-0.4); HEMATOCRIT 36.5 % (35.0-46.0); LYMPH % 23.4 % (9.0-44.0); LYMPHOCYTE # 1.3 TH/MM3 (1.0-4.8); MEAN CELL VOLUME 100.6 FL (80.0-100.0); MEAN CORPUSCULAR HEMOGLOBIN 35.8 PG (27.0-34.0); MEAN CORPUSCULAR HGB CONC 35.6 % (32.0-36.0); MONO % 8.1 % (0.0-8.0); NEUT % 65.8 % (16.0-70.0); PLATELET COUNT 84 TH/MM3 (150-450); RED BLOOD COUNT 3.63 MIL/MM3 (4.00-5.30); RED CELL DISTRIBUTION WIDTH 13.3 % (11.6-17.2); WHITE BLOOD COUNT 5.7 TH/MM3 (4.0-11.0)
[2016-12-30 05:57] LABS: HEMO FLAGS AUTO DIFF
[2016-12-30 06:25] LABS: BICARBONATE 30.3 MEQ/L (21.0-32.0); MAGNESIUM 1.2 MG/DL (1.5-2.5)
[2016-12-30 06:31] LABS: CALCIUM-PROTEIN CORRECTED 7.1 MG/DL (8.5-10.1); POTASSIUM 2.9 MEQ/L (3.5-5.1)
[2016-12-30 07:39] LABS: BANDS 16 % (0-6); EOSINOPHILS 2 % (0-4); NEUTROPHIL # MANUAL DIFF 3.8 TH/MM3 (1.8-7.7); POLYS (SEG NEUTROPHILS) 50 % (16-70); WBC DIFF SAMPLE 100
[2016-12-30 07:40] LABS: PLATELET ESTIMATE SMEAR LOW (NORMAL); PLATELET MORPHOLOGY NORMAL (NORMAL); SCAN/DIFF FINAL DIFF MANUAL
[2016-12-30] MEDS: MULTIVITAMINS/MINERALS THERAPEUTIC TAB PO SCH (08:03)
[2016-12-30] MEDS: THIAMINE HCL 100 MG TAB PO SCH (08:03)
[2016-12-30] MEDS: FOLIC ACID 1 MG TAB PO SCH (08:03)
[2016-12-30] MEDS: FAMOTIDINE 20 MG/2 ML VIAL IV PUSH SCH ×2 (08:04→21:17)
[2016-12-30] MEDS: SODIUM CHLORIDE 0.9% FLUSH 10 ML FLUSH SCH ×2 (08:04→21:16)
[2016-12-30] MEDS: DOCUSATE SODIUM 50 MG/SENNA 8.6 MG TAB PO SCH ×2 (09:00→21:00)
[2016-12-30] MEDS ORDERED: THIAMINE INJ 100 MG in SODIUM CHLORIDE 0.9% INJ 100 ML IV ONE (09:00)
[2016-12-30] MEDS: MAGNESIUM SULFATE 1 GM PREMIX 100 ML IV SCH ×2 (09:48→10:00)
[2016-12-30] MEDS: SODIUM CHLOR 0.9% 1000 ML INJ 1,000 ML IV SCH ×2 (09:53→19:00)
[2016-12-30] MEDS: POTASSIUM CHLOR 10 MEQ PREMIX 100 ML IV SCH ×4 (09:56→18:00)
[2016-12-30] MEDS ORDERED: CALCIUM GLUCONATE INJ 2 GM in SODIUM CHLORIDE 0.9% INJ 100 ML IV ONE (10:00)
--- NOTE | 2016-12-30 10:10 | RADRPT ---
EXAM DATE/TIME: 12/30/2016 08:49 [facility] COMPARISON: No previous studies available for comparison. INDICATIONS : Increased lab values. MEDICAL HISTORY : Diverticulosis. Asthma. GERD. Depression. Anxiety. SURGICAL HISTORY : Tubal ligation. GI surgery. ENCOUNTER: Initial ACUITY: 1 day PAIN SCORE: Nonresponsive. LOCATION: Bilateral upper quadrant MEASUREMENTS: LIVER: 17.7 cm length COMMON DUCT: 4 mm RIGHT KIDNEY: 10.2 x 4.1 x 4.0 cm SPLEEN: 10.0 cm length FINDINGS: Liver mildly enlarged with fatty infiltration. Trace free fluid in Burton's pouch. Portal venous fl ow is normal direction. Common bile duct measures 4 mm in diameter. No gallstones or gallbladder wall thickening. Right kidney measures 10 cm in length without hydronephrosis. Spleen unremarkable. CONCLUSION: Fatty liver with mild enlargement. No gallstones or biliary ductal dilatation. Trace free fluid in Mo rrison's pouch. Sarkis Amador MD on December 30, 2016 at 10:05 Board Certified Radiologist. This report was verified electronically.
--- NOTE | 2016-12-30 15:07 | EKG ---
Date Performed: 12/30/2016 Time Performed: 02:25:04 PTAGE: 56 years EKG: Sinus tachycardia with borderline 1st degree A-V block Consider left atrial abnormality Poo r R wave progression - probable normal variant Since previous tracing, no significant change noted Tyler rderline ECG PREVIOUS TRACING : 12/29/2016 20.03 DOCTOR: Raiza Figueroa Interpretating Date/Time 12/30/2016 15:06:39
--- NOTE | 2016-12-30 15:07 | EKG ---
Date Performed: 12/29/2016 Time Performed: 20:03:16 PTAGE: 56 years EKG: SINUS TACHYCARDIA POSSIBLE ANTERIOR MYOCARDIAL INFARCTION , OF INDETERMINATE AGE When amos red to previous tracing, the patient is now Tachycardic. ABNORMAL ECG PREVIOUS TRACING : 12/29/2016 03.40 DOCTOR: Raiza Figueroa Interpretating Date/Time 12/30/2016 15:06:16
[2016-12-30] MEDS: LORazepam 2 MG/ML VIAL IV PRN (15:59)
--- NOTE | 2016-12-30 20:59 | HHI.PR ---
Subjective Remarks Patient sleeping, wakes up for exam. Daughter at bedside. Patient denies any pain. Objective Vital Signs Date Time Temp Pulse Resp B/P Pulse Ox O2 Delivery O2 Flow Rate FiO2 12/30/16 20:01 97 21 12/30/16 16:00 97.7 117 18 143/92 96 12/30/16 12:00 98.9 108 18 142/103 97 12/30/16 09:00 94 Room Air 12/30/16 08:18 97 12/30/16 08:00 98.4 109 18 124/88 96 12/30/16 04:00 98.6 118 24 137/99 97 12/30/16 03:43 97 21 12/30/16 00:00 Room Air 12/30/16 00:00 98.6 123 22 143/99 98 12/29/16 22:10 127 138/104 I/O 12/29/16 12/29/16 12/29/16 12/30/16 12/30/16 12/30/16 07:00 15:00 23:00 07:00 15:00 23:00 Intake Total 2243 ml 710 ml 316 ml 0 ml Output Total 800 ml 1800 ml 1500 ml 1800 ml Balance 1443 ml -1090 ml -1184 ml -1800 ml Intake Oral 0 ml 0 ml 0 ml IV Total 2243 ml 710 ml 316 ml Output Urine Total 800 ml 1800 ml 1500 ml 1800 ml # Bowel Movements 0 0 1 0 Result Diagram: 12/30/16 0501 12/30/16 0507 Objective Remarks GENERAL: patient sleeping, wakes up for exam. SKIN: Warm and dry. HEAD: Normocephalic. EYES: No scleral icterus. No injection or drainage. NECK: Supple, trachea midline. No JVD. CARDIOVASCULAR: Regular rate and rhythm without murmurs, gallops, or rubs. RESPIRATORY: Breath sounds equal bilaterally. No accessory muscle use. GASTROINTESTINAL: Abdomen soft, non-tender, nondistended. MUSCULOSKELETAL: No cyanosis, or edema. BACK: Nontender without obvious deformity. No CVA tenderness. A/P Assessment and Plan =====12/30/16==== //Altered mental status improving. Likely alcohol withdrawal combined with possible overdose. Past bedside nursing swallow eval. Start nectar thickened liquids. //Hypokalemia-Potassium 2.9 low. Replace. //Hypomagnesemia. Acute. 1.2. Replaced. //Hypocalcemia. 7.1. Vitamin D level within normal limits. //Suspected alcoholic cirrhosis. We'll need to stop drinking. //Alcohol withdrawal. Continue CIWA protocol. Schedule Librium. //Tachycardia. Likely secondary to alcohol withdrawal versus Wellbutrin overdose. Start low-dose metoprolol. //Suspected intentional Wellbutrin overdose. Consult psychiatry. //Respiratory failure -Extubated. Appears resolved. //Altered mental status - History of intentional overdose - negative toxicology screen - CT head NAF //Hypokalemia - Electrolyte replacement per ICU protocol //GERD - IV Pepcid //Troponin leak - Tachycardia??? - EKG without signs of acute ischemia - Series of troponins and EKGs //DVT GI prophylaxis - Teds SCDs subcutaneous heparin - Shun Plummer MD Dec 30, 2016 20:59
[2016-12-30] MEDS ORDERED: PILL SPLITTER OTHER PRN (21:00)
[2016-12-30] MEDS: METOPROLOL TARTRATE 25 MG TAB PO SCH (21:00)
[2016-12-31] VITALS (7 sets, daily range): BP systolic 133–145; BP diastolic 89–96; PULSE 103–113; RESP 18–20; TEMP 97.4–98.7; O2SAT 95–97
[2016-12-31] MEDS: LORazepam 2 MG/ML VIAL IV PUSH PRN ×3 (01:21→15:29)
[2016-12-31] MEDS: CHLORHEXIDINE GLUCONATE 2 % 1 PACK (2 CLOTHS) TOP SCH (03:01)
[2016-12-31] MEDS: RESP: ALBUTEROL 2.5 MG/IPRATROPIUM 0.5 MG NEB (SCH) INH ×3 (03:37→15:54)
[2016-12-31] MEDS: SODIUM CHLOR 0.9% 1000 ML INJ 1,000 ML IV SCH ×2 (05:00→15:34)
[2016-12-31] MEDS: HEPARIN SODIUM - SQ 10,000 UNITS/ML VIAL SQ SCH ×2 (05:10→13:40)
[2016-12-31] MEDS: SODIUM CHLORIDE 0.9% FLUSH 10 ML FLUSH SCH (09:00)
[2016-12-31] MEDS: MULTIVITAMINS/MINERALS THERAPEUTIC TAB PO SCH (09:00)
[2016-12-31] MEDS: METOPROLOL TARTRATE 25 MG TAB PO SCH (09:50)
[2016-12-31] MEDS: THIAMINE HCL 100 MG TAB PO SCH (09:51)
[2016-12-31] MEDS: DOCUSATE SODIUM 50 MG/SENNA 8.6 MG TAB PO SCH (09:52)
[2016-12-31] MEDS: FAMOTIDINE 20 MG/2 ML VIAL IV PUSH SCH (09:52)
[2016-12-31] MEDS: FOLIC ACID 1 MG TAB PO SCH (09:52)
[2016-12-31 10:29] LABS: AUTOMATED NEUTROPHIL # 3.3 TH/MM3 (1.8-7.7); BASOPHIL % 0.8 % (0.0-2.0); EOSINOPHIL # 0.2 TH/MM3 (0-0.4); EOSINOPHIL % 4.9 % (0.0-4.0); HEMATOCRIT 39.3 % (35.0-46.0); LYMPH % 19.5 % (9.0-44.0); MEAN CELL VOLUME 102.2 FL (80.0-100.0); MEAN CORPUSCULAR HEMOGLOBIN 35.1 PG (27.0-34.0); MEAN CORPUSCULAR HGB CONC 34.4 % (32.0-36.0); MONO % 7.7 % (0.0-8.0); NEUT % 67.1 % (16.0-70.0); PLATELET COUNT 73 TH/MM3 (150-450); RED BLOOD COUNT 3.84 MIL/MM3 (4.00-5.30); RED CELL DISTRIBUTION WIDTH 13.3 % (11.6-17.2)
[2016-12-31 10:31] LABS: HEMO FLAGS AUTO DIFF
[2016-12-31 10:57] LABS: BICARBONATE 22.2 MEQ/L (21.0-32.0); INDIRECT BILIRUBIN 0.7 MG/DL (0.0-0.8); MAGNESIUM 1.6 MG/DL (1.5-2.5); POTASSIUM 3.3 MEQ/L (3.5-5.1); TOTAL BILIRUBIN ADULT 0.9 MG/DL (0.2-1.0)
[2016-12-31 11:02] LABS: BANDS 9 % (0-6); BASOPHILS 2 % (0-2); EOSINOPHILS 2 % (0-4); METAMYELOCYTES 1 % (0-1); NEUTROPHIL # MANUAL DIFF 3.7 TH/MM3 (1.8-7.7); POLYS (SEG NEUTROPHILS) 63 % (16-70); WBC DIFF SAMPLE 100
[2016-12-31 11:03] LABS: PLATELET ESTIMATE SMEAR LOW (NORMAL); PLATELET MORPHOLOGY NORMAL (NORMAL); SCAN/DIFF FINAL DIFF MANUAL
[2016-12-31] MEDS: LORazepam 2 MG/ML VIAL IV PRN ×2 (11:14→17:12)
[2016-12-31] MEDS ORDERED: POTASSIUM CHLORIDE 10 MEQ CONTROLLED RELEASE TAB PO ONE (12:15)
[2016-12-31] MEDS ORDERED: MAGNESIUM SULFATE 1 GM PREMIX 100 ML IV ONE (12:15)
[2016-12-31] MEDS ORDERED: LORazepam 2 MG/ML VIAL IV ONE (12:45)
--- NOTE | 2016-12-31 13:33 | PD.PSY.CON ---
Provisional Diagnosis Admission Date Dec 29, 2016 at 01:39 Gardiner I. Delirium due to alcohol withdrawal, alcohol use disorder, alcohol induced mood disorder Gardiner II. Deferred Gardiner III. Diverticulosis Gardiner IV. Her 2 years ago, history of alcoholism Gardiner V. 56 History of Present Illness Service Psychiatry Consult Requested By Reason for Consult Potential overdosed and depressive symptoms Primary Care Physician Sampson Perez M.D. HPI The patient is a 56-year-old woman, domiciled alone in [facility], , self employed, psychiatric history of alcohol use disorder, alcohol induced mood disorder, Puckett acted before due to alcohol related problems, with previous history of intentional overdose 7 years ago, no previous psychiatric hospitalizations, history of alcohol withdrawal, who was brought to the hospital because she was found by her daughter unresponsive. Per daughter she wasn't arousable to painful stimuli and EMS was called. The daughter found open bottle of Wellbutrin that was prescribed in 2013; however she's not sure how many pills were there before if any. Patient was intubated in the emergency department for an airway protection. He was found with several electrolyte and metabolic and electrolyte abnormalities. Hypokalemia-Potassium 2.9 low. Hypomagnesemia. Acute. 1.2. Replaced. Hypocalcemia. 7.1. Consulted to psychiatry to assess underlying depression and potential suicidal attempt. On psychiatric evaluation today patient is found disorganized, disoriented in time person and place. With active visual hallucinations. Patient is hyperactive, restless. Patient says that she feels happy, that she is at home with some friends, she is unable to recognize her own daughters around her. However, at times patient shows some periodic intermitted lucidity , but she is unable to provide any meaningful information for the psychiatric assessment at this moment. She doesn't know was depressing of denies states, she thinks we are 1977. Her 2 daughters present at bedside, Iman Dixon and Yuly Johnathon, they both say that there are no exactly what has been in her mother mind in the last weeks, but in several moment her mother has pressed suicidal ideation, but no plan. She has been making frequent suicidal statements hide the phone. Yuly thoughts that she was just intoxicated which she was doing that, but most probably at the same time she thinks that her mother is depressed most probably overdosed with the intention to . SHe clarified that her mother has been very twice, and both time her has . The clarify that the patient doesn't have any previous psychiatric history, she tried to commit suicide by overdosing 7 years ago, but she was not seen by professional them. Review of Systems Constitutional: DENIES: Diaphoretic episodes, Fatigue, Fever, Weight gain, Weight loss, Chills, Dizziness, Change in appetite, Night Sweats Endocrine: DENIES: Abnorml menstrual pattern, Heat/cold intolerance, Polydipsia , Polyuria, Polyphagia Eyes: DENIES: Blurred vision, Diplopia, Eye inflammation, Eye pain, Vision loss , Photosensitivity, Double Vision Ears, nose, mouth, throat: DENIES: Tinnitus, Hearing loss, Vertigo, Nasal discharge, Oral lesions, Throat pain, Hoarseness, Ear Pain, Running Nose, Epistaxis, Sinus Pain, Toothache, Odynophagia Respiratory: DENIES: Apneas, Cough, Snoring, Wheezing, Hemoptysis, Sputum production, Shortness of breath Cardiovascular: DENIES: Chest pain, Palpitations, Syncope, Dyspnea on Exertion , PND, Lower Extremity Edema, Orthopnea, Claudication Gastrointestinal: DENIES: Abdominal pain, Black stools, Bloody stools, Constipation, Diarrhea, Nausea, Vomiting, Difficulty Swallowing, Anorexia Musculoskeletal: DENIES: Joint pain, Muscle aches, Stiffness, Joint Swelling, Back pain, Neck pain Integumentary: DENIES: Abnormal pigmentation, Pruritus, Rash, Nail changes, Breast masses, Breast skin changes, Nipple discharge Hematologic/lymphatic: DENIES: Bruising, Lymphadenopathy Neurologic: COMPLAINS OF: Tremor, Poor Balance Psychiatric: COMPLAINS OF: Confusion, Hallucinations Past Family Social History Coded Allergies: No Known Allergies (Verified , 12/28/16) Unable to Obtain Active Prescriptions or Reported Meds Current Medications Medications (Trade) Dose Ordered Sig/Yasmine Route Start Time Stop Time Status Last Admin Sodium Chloride 2 ml 2 ml UNSCH PRN IVF 12/29/16 00:00 (Diprivan 1000 Mg/100ml Inj) 100 ml @ 0 mls/hr TITRATE IV 12/29/16 01:45 12/29/16 01:45 (NS Flush) 2 ml UNSCH PRN .XX 12/29/16 01:45 12/30/16 00:34 (NS Flush) 2 ml BID .XX 12/29/16 09:00 12/31/16 09:00 (Tylenol) 650 mg Q6H PRN PO 12/29/16 01:45 (Morphine Inj) 2 mg Q2H PRN IV 12/29/16 01:45 (Pepcid Inj) 20 mg Q12HR IV PUSH 12/29/16 09:00 12/31/16 09:52 (Ativan Inj) 1 mg Q1H PRN IV 12/29/16 01:45 12/31/16 11:14 (Heparin Inj) 5,000 units Q8HR SQ 12/29/16 06:00 12/31/16 05:10 Miscellaneous Information 1 Q361D XX 12/29/16 01:45 (Chlorhexidine 2% Cloth) 3 pack Taper DAILY@04 TOP 12/29/16 04:00 12/25/17 03:59 12/31/16 03:01 (Chlorhexidine 2% Cloth) 3 pack UNSCH PRN TOP 12/29/16 01:45 (Barbie-Colace) 1 tab BID PO 12/29/16 09:00 12/31/16 09:52 (Milk Of Magnesia Liq) 30 ml Q12H PRN PO 12/29/16 01:45 (Senokot) 17.2 mg Q12H PRN PO 12/29/16 01:45 (Dulcolax Supp) 10 mg DAILY PRN RECTAL 12/29/16 01:45 Lactulose 30 ml 30 ml DAILY PRN PO 12/29/16 01:45 Propofol 100 ml @ 0 mls/hr TITRATE IV 12/29/16 01:45 (NS 1000 ml Inj) 1,000 ml @ 100 mls/hr Q10H IV 12/29/16 13:00 12/30/16 19:00 (Folate) 1 mg DAILY PO 12/30/16 09:00 01/04/17 08:59 12/31/16 09:52 (Vitamin B1) 100 mg DAILY PO 12/30/16 09:00 12/31/16 09:51 (Theragran M Tab) 1 tab DAILY PO 12/30/16 09:00 01/04/17 08:59 12/31/16 09:00 (Romazicon Inj) 0.2 mg Q1M PRN IV PUSH 12/29/16 13:00 (Ativan) 1 mg Q4H PRN PO 12/29/16 13:00 (Ativan Inj) 1 mg Q4H PRN IV PUSH 12/29/16 13:00 12/31/16 05:10 (Ativan) 2 mg Q2H PRN PO 12/29/16 13:00 (Ativan Inj) 2 mg Q2H PRN IV PUSH 12/29/16 13:00 12/30/16 00:33 (Ativan Inj) 2 mg Q1H PRN IV PUSH 12/29/16 13:00 12/29/16 21:44 (Ativan Inj) 2 mg Q15M PRN IV PUSH 12/29/16 13:00 (Librium) 10 mg TID PO 12/30/16 13:00 12/31/16 09:52 (Lopressor) 12.5 mg Q12HR PO 12/30/16 21:00 12/31/16 09:50 Miscellaneous 1 ea 1 ea UNSCH PRN OTHER 12/30/16 21:00 (Magnesium Sulfate 1 Gm Premix) 100 ml @ 100 mls/hr ONCE ONCE IV 12/31/16 12:15 12/31/16 13:14 Family History No psychiatric family history Social History He was born and raised in [place], she lives in [place] alone, she is , self employed, highest level of education is high school she has 2 daughters Patient's Strengths (min. 2) Family support Physical Exam Patient is hyperactive, tremulous, agitated, with active visual hallucinations, disorganized, bilateral tremors Vital Signs Vital Signs Date Time Temp Pulse Resp B/P Pulse Ox O2 Delivery O2 Flow Rate FiO2 12/31/16 10:20 97 12/31/16 08:00 98.3 104 20 145/95 12/31/16 04:00 Room Air 12/30/16 20:01 21 12/29/16 00:13 10 I/O 12/30/16 12/30/16 12/31/16 08:00 16:00 00:00 Intake Total 316 ml 0 ml 1290 ml Output Total 1500 ml 1800 ml 700 ml Balance -1184 ml -1800 ml 590 ml Mental Status Examination Appearance woman, disheveled, for hygiene, poorly cooperative, restless Speech: Hesitant, Incoherent Orientation: Person Memory: Impaired (describe) Thought Process: Flight of Ideas, Loose Association Thought Content: Bizarre thinking, Paranoid Language Limited due to cognitive impairment Fund of Knowledge Limited due to level of cognitive impairment Hallucination Type: Visual Attention and Concentration: Good Suicidal Ideation: Yes Previous Suicide Attempts: Yes Homicidal Ideation: No Previous Homicide Attempts: Yes Judgment: Poor Affect: Irritable, Anxious Mood: Anxious Motor Activity: Normal gait Assessment & Plan Problem List: (1) Major depressive disorder, single episode Assessment & Plan: On the Denominational evaluation today the patient is poorly cooperative, restless, disoriented, confused, with active visual hallucinations , tremors and autonomic instability. Patient is in acute delirium due to alcohol withdrawal. A full psychiatric assessment was not possible at this moment due to the level of disorganization and lack of cooperation of the patient. Based in collateral information obtained from 2 daughters patient has been depressed in the last months, making frequent suicidal statements and the reason she is in the hospital right now is because she overdosed with Wellbutrin with suicidal intentions. Patient should remain in [facility] act and transfer to psychiatry when medically stable. He can also be transfer to med psych. We'll start Seroquel 25 mg twice a day with behavioral control and perceptual disturbances. Patient would benefit of a one-to-one sitter for safety. We'll follow-up. ICD Code: F32.9 (2) Alcohol withdrawal delirium Assessment & Plan: Patient actively delirious, with prominent visual hallucinations, disorientation, hyperactivity, autonomic instability, Restlessness and disorientation. We will increase Librium to 25 mg 3 times a day. Continue CIWA protocol. Would give Haldol 2 mg IV right now. ICD Code: F10.231 Assessment & Plan Estimated LOS: Andres Clifford MD Dec 31, 2016 13:33
[2016-12-31] MEDS ORDERED: GNP100TA3 PO (17:42)
[2016-12-31] MEDS ORDERED: METO25TA3 PO (17:42)
[2016-12-31] MEDS ORDERED: ATIV2INJ2 IV PUSH (17:42)
[2016-12-31] MEDS ORDERED: CHLO25CA9 PO (17:46)
--- NOTE | 2016-12-31 17:50 | HHI.DS ---
Discharge Summary Admission Date Dec 29, 2016 at 01:39 Discharge Date: Dec 31, 2016 Admitting Diagnosis AMS, Etoh intoxication Procedures patient was intubated on admission, subsequently extubated Brief History - From Admission 56-year-old female with previous history of intentional overdose 7 years ago, history of daily alcohol use, was found by her daughter unresponsive. Per daughter she wasn't arousable to painful stimuli and EMS was called. The daughter found open bottle of Wellbutrin that was prescribed in 2013; however she's not sure how many pills were there before if any. Patient was intubated in the emergency department for an airway protection. CBC/BMP: 12/31/16 0915 12/31/16 0915 Significant Findings Laboratory Tests Test 12/29/16 12/29/16 12/29/16 12/29/16 00:15 01:05 06:27 17:30 Red Blood Count 3.71 MIL/MM3 (4.00-5.30) Mean Corpuscular Volume 102.4 FL (80.0-100.0) Mean Corpuscular Hemoglobin 34.8 PG (27.0-34.0) Platelet Count 115 TH/MM3 (150-450) Lymphocytes (%) (Auto) 47.3 % (9.0-44.0) Monocytes (%) (Auto) 8.5 % (0.0-8.0) Neutrophils # (Auto) 1.6 TH/MM3 (1.8-7.7) Urine Bacteria RARE /hpf (NONE) Urine Mucus FEW /lpf (OCC) Potassium Level 3.0 MEQ/L (3.5-5.1) Blood Urea Nitrogen 5 MG/DL (7-18) Calcium Level 8.0 MG/DL (8.5-10.1) Magnesium Level 1.3 MG/DL (1.5-2.5) Aspartate Amino Transf 93 U/L (15-37) (AST/SGOT) Alanine Aminotransferase 79 U/L (10-53) (ALT/SGPT) Troponin I 0.38 NG/ML 0.51 NG/ML 0.29 NG/ML (0.02-0.05) (0.02-0.05) (0.02-0.05) Acetaminophen Level LESS THAN 2.0 MCG/ML (10.0-30.0) Ethyl Alcohol Level 295 MG/DL (0-5) Blood Gas HCO3 21 mmol/L (22-26) Blood Gas Base Excess -3.2 mmol/L (-2-2) Arterial Blood pH 7.37 (7.380-7.420) Arterial Blood Partial 233 mmHG Pressure O2 (61-120) Arterial Blood 4.3 % (0-4) Carboxyhemoglobin Test 12/30/16 12/30/16 12/31/16 05:01 05:07 09:15 Red Blood Count 3.63 MIL/MM3 3.84 MIL/MM3 (4.00-5.30) (4.00-5.30) Mean Corpuscular Volume 100.6 FL 102.2 FL (80.0-100.0) (80.0-100.0) Mean Corpuscular Hemoglobin 35.8 PG 35.1 PG (27.0-34.0) (27.0-34.0) Platelet Count 84 TH/MM3 73 TH/MM3 (150-450) (150-450) Monocytes (%) (Auto) 8.1 % (0.0-8.0) Band Neutrophils % 16 % (0-6) 9 % (0-6) Monocytes % 11 % (0-8) Platelet Estimate LOW (NORMAL) LOW (NORMAL) Potassium Level 2.9 MEQ/L 3.3 MEQ/L (3.5-5.1) (3.5-5.1) Blood Urea Nitrogen 4 MG/DL (7-18) Calcium Level 7.0 MG/DL 8.1 MG/DL (8.5-10.1) (8.5-10.1) Protein Corrected Calcium 7.1 MG/DL (8.5-10.1) Magnesium Level 1.2 MG/DL (1.5-2.5) Direct Bilirubin 0.3 MG/DL (0.0-0.2) Aspartate Amino Transf 58 U/L (15-37) 47 U/L (15-37) (AST/SGOT) Alanine Aminotransferase 63 U/L (10-53) (ALT/SGPT) Albumin 3.3 GM/DL 3.1 GM/DL (3.4-5.0) (3.4-5.0) Eosinophils (%) (Auto) 4.9 % (0.0-4.0) Random Glucose 53 MG/DL (74-106) Phosphorus Level 2.4 MG/DL (2.5-4.9) Imaging Last Impressions Liver Ultrasound 12/30/16 0000 Signed Impressions: Service Date/Time: December 08:49 - CONCLUSION: Fatty liver with mild enlargement. No gallstones or biliary ductal dilatation. Trace free fluid in Burton's pouch. Sarkis Amador MD Chest X-Ray 12/30/16 0000 Signed Impressions: Service Date/Time: December 05:21 - CONCLUSION: No acute disease. Matthieu Parada MD Head CT 12/28/16 [id number] Signed Impressions: Service Date/Time: Thursday, December 29, 2016 06:13 - CONCLUSION: 1. No acute hemorrhage, mass or infarction. 2. Mucosal thickening in the ethmoidal air cells. Matthieu Parada MD Pt update on day of discharge patient much more alert today. She reports previously having abdominal pain, however denies any now. Denies any nausea or vomiting. Consult to psychiatry. Discharged to medical psychiatry. Hospital Course =====12/30/16==== //Altered mental status improving. Likely alcohol withdrawal combined with possible overdose. Past bedside nursing swallow eval. Start nectar thickened liquids. //Hypokalemia-Potassium 2.9 low. Replace. //Hypomagnesemia. Acute. 1.2. Replaced. //Hypocalcemia. 7.1. Vitamin D level within normal limits. //Suspected alcoholic cirrhosis. We'll need to stop drinking. //Alcohol withdrawal. Continue CIWA protocol. Schedule Librium. //Tachycardia. Likely secondary to alcohol withdrawal versus Wellbutrin overdose. Start low-dose metoprolol. //Suspected intentional Wellbutrin overdose. Consult psychiatry. //Respiratory failure -Extubated. Appears resolved. //Altered mental status - History of intentional overdose - negative toxicology screen - CT head NAF //Hypokalemia - Electrolyte replacement per ICU protocol //GERD - IV Pepcid //Troponin leak - Tachycardia??? - EKG without signs of acute ischemia - Series of troponins and EKGs //DVT GI prophylaxis - Teds SCDs subcutaneous heparin - Pepcid Pt Condition on Discharge: Stable Discharge Disposition: Disc to Psych Care [facility] Discharge Time: > 30 minutes Discharge Instructions DIET: Follow Instructions for: As Tolerated, No Restrictions Activities you can perform: Regular-No Restrictions New Medications: Chlordiazepoxide HCl (Chlordiazepoxide HCl) 25 Mg Capsule 25 MG PO TID Alcohol Detox Days 30 TAB Lorazepam Inj (Ativan Inj) 2 Mg/Ml Inj 2 MG IV PUSH Q1H PRN CIWA 15-20 Days 30 INJECTION Metoprolol Tartrate (Metoprolol Tartrate) 25 Mg Tab 12.5 MG PO Q12HR heart rate Days 30 TAB Thiamine HCl (Gnp Vitamin B-1) 100 Mg Tab 100 MG PO DAILY vitamin Days 30 TAB Shun Talbot MD Dec 31, 2016 17:49
[2016-12-31] MEDS ORDERED: chlordiazePOXIDE 25 MG CAP PO SCH (18:00)
== END 2016-12-31 20:08 | DRG 917 ==
LOC: NEPE 23:23 → NEDA 12-29 01:39 → N03A 12-29 08:12 → N04A 12-29 15:21
PROVIDERS: ADMIT Internal Medicine; ATTEND Internal Medicine
PROC: 5A1935Z Respiratory Ventilation, Less than 24 Consecutive Hours (ICD-10-PCS; principal; 2016-12-29)
PROC: 0BH17EZ Insertion of Endotracheal Airway into Trachea, Via Natural or Artificial Opening (ICD-10-PCS; 2016-12-29)
DX: T51.0X1A Toxic effect of ethanol, accidental (unintentional), initial encounter (principal); J96.00 Acute respiratory failure, unspecified whether with hypoxia or hypercapnia; F10.239 Alcohol dependence with withdrawal, unspecified; Y90.8 Blood alcohol level of 240 mg/100 ml or more; R41.82 Altered mental status, unspecified; E83.42 Hypomagnesemia; K70.30 Alcoholic cirrhosis of liver without ascites; E87.6 Hypokalemia; K21.9 Gastro-esophageal reflux disease without esophagitis; E83.51 Hypocalcemia; R00.0 Tachycardia, unspecified; F17.210 Nicotine dependence, cigarettes, uncomplicated
CPT/HCPCS: 31500; 36600; 51702; 70450; 71010; 76705; 80053; 80069; 80076; 80307; 81001; 82140; 82248; 82306; 82550; 82805; 82948; 83690; 83735; 83880; 84100; 84484; 85007; 85025; 85027; 85610; 85730; 87641; 93005; 94002; 94150; 94640; 96360; J0330; J0610; J1644; J2060; J2250; J2310; J3411; J3475; J3480; J7030; J7040

== ENCOUNTER 2016-12-31 19:00 | Inpatient (IN) | payer SELFPAY ==
[~2016-12-31 19:00] MED LIST changes: +ATIV2INJ2 IV PUSH; +CHLO25CA9 PO; +GNP100TA3 PO; +METO25TA3 PO; -Z.0.NO CURRENT MEDS
[2016-12-31 20:15] VITALS: BP 131/91; PULSE 104; RESP 19; TEMP 98.4; O2SAT 95
[2016-12-31] MEDS: chlordiazePOXIDE 25 MG CAP PO SCH (22:00)
[2016-12-31] MEDS: HALOPERIDOL LACTATE 5 MG/ML AMP IM PRN (22:13)
[2016-12-31] MEDS ORDERED: LORazepam 2 MG/ML VIAL IM PRN (22:15)
[2016-12-31] MEDS ORDERED: ACETAMINOPHEN 325 MG TAB PO PRN (22:15)
[2016-12-31] MEDS ORDERED: MAGNESIUM HYDROXIDE SUSP 30 ML CUP PO PRN (22:15)
[2016-12-31] MEDS ORDERED: LORazepam 1 MG TAB PO PRN (22:15)
[2016-12-31] MEDS ORDERED: ALUMINUM/MAGNESIUM/SIMETH 30 ML CUP PO PRN (22:15)
[2017-01-01 05:57] VITALS: BP 126/94; PULSE 101; RESP 15; TEMP 97.9; O2SAT 95
[2017-01-01] MEDS ORDERED: FLUMAZENIL 0.5 MG/5 ML VIAL IV PUSH PRN (08:45)
[2017-01-01] MEDS ORDERED: LORazepam 2 MG/ML VIAL IV PUSH PRN ×2 (08:45)
[2017-01-01] MEDS: QUEtiapine FUMARATE 25 MG TAB PO SCH ×2 (09:00→21:06)
[2017-01-01] MEDS: NICOTINE 21 MG/24 HR PATCH T-DERMAL SCH ×2 (09:00→19:13)
[2017-01-01] MEDS: chlordiazePOXIDE 25 MG CAP PO SCH ×4 (09:27→21:06)
[2017-01-01] MEDS: FOLIC ACID 1 MG TAB PO SCH (09:27)
[2017-01-01] MEDS: THIAMINE HCL 100 MG TAB PO SCH (09:27)
--- NOTE | 2017-01-01 09:39 | MH ---
cc: KRISTEN DE OLIVEIRA MD, DAVID B. MD DATE OF ADMISSION: 12/31/2016 ADMISSION DIAGNOSES 1. Depressive disorder, F 32.9 2. Alcohol dependence and withdrawal, F10.231 LEGAL STATUS: The patient is presently not capacitated to consent for admission or for medications. Involuntary status. I have completed first opinion. Consult for second opinion. Request health care surrogate and guardian advocate. HISTORY OF PRESENT ILLNESS Ms. Diego is a 56-year-old female of uncertain past psychiatric history who presents in transfer from the medical floor. She initially presented to the emergency department on 12/29 with altered mental status. She was intoxicated with alcohol but there was also concern for possible Wellbutrin overdose. The patient was seen on the inpatient medical unit by Dr. De Oliveira who recommended transfer to the inpatient psychiatric unit. Reviewing the electronic medical record I note that the patient was seen previously in consultation by Dr. Mcgee in 2006. The patient seen and examined with nurse. Chart reviewed. Case discussed with nursing staff. On my examination today, the patient presents as fairly confused. See full mental status testing below. She has no recollection of making a overdose on Wellbutrin. She denies any suicidal or homicidal ideation at this time but appears unreliable to contract for safety. Sleep is reportedly poor. Affect dysphoric. She denies any audiovisual hallucinations presently but describes recent perceptual disturbances of "craziness going on." No hypomanic or manic symptoms. The remainder of the psychiatric ROS is negative. PAST PSYCHIATRIC HISTORY The patient denies a history of psychiatric diagnosis. She denies a history of inpatient or outpatient psychiatric treatment. She denies a history of suicide attempts. FAMILY HISTORY The patient denies any family history of mental illness. CHEMICAL DEPENDENCY HISTORY: The patient reports that she drinks four shots of liquor daily. She does endorse a history of blackouts but denies a history of DTs or seizures. She denies any consequences from her drinking such as DUIs, job loss a relationship problems. She denies any other substance use. Her alcohol level on presentation here was 295. SOCIAL HISTORY The patient reports that she lives with her pet dog and cat. She is with two children. She is high school educated. She works in sales. She denies any or legal history. She denies any access to guns or firearms. PAST MEDICAL HISTORY See electronic medical record. REVIEW OF SYSTEMS No reported headache, vision or hearing changes, chest pain, shortness of breath, bowel or bladder issues. No other physical complaints. PHYSICAL EXAMINATION VITAL SIGNS: Temperature 97.9, pulse 101, respirations 15, blood pressure 126/94, pulse oximetry 95% on room air. Physical examination was completed on the medical floor prior to transfer to the inpatient psychiatric unit. On my examination today, the patient is generally tremulous but not diaphoretic. She does have mydriasis and her reflexes are somewhat brisk. No tongue fasciculations. No other stigmata of alcohol withdrawal at this time. She is in no acute physical distress. No other motoric abnormalities appreciated. LABORATORY Reviewed: CBC reveals macrocytosis without anemia. CMP reveals might mild hypokalemia. Urine toxicology was negative. Alcohol level was 295 as I said. Urinalysis was bland. Head CT performed at initial presentation revealed no acute intracranial process. MENTAL STATUS EXAM The patient is in hospital gown. She is fairly disheveled. She is awake and alert and oriented to person and 2017 only. Her registration is 3/3 but her recall is 1/3 at 3 minutes. She is able to spell the word world forwards and backwards with no errors. She is unable however to perform serial sevens. Her naming and repetition are intact. Motor exam is as above. Speech is within normal limits for rate, tone and volume. Focusing concentration scattered. Memory seems somewhat impaired on clinical exam. Mood and affect are restricted and dysphoric. Thought process somewhat circumstantial. No loosening of associations. No delusional material elicited. Denies audiovisual hallucinations presently but reports recent perceptual disturbances. Denies suicidal or homicidal ideation but does not seem reliable to contract for safety. Insight and judgment seem presently poor. ASSESSMENT/PLAN This is a 56-year-old female with psychiatric history as detailed above who is presently admitted to the inpatient to the medical psychiatric unit under a [facility] ACT. On my examination today, the patient presents as confused with ongoing signs of alcohol withdrawal. I suspect she continues to experience alcohol withdrawal delirium. There was concern for overdose prior to presentation here and so the patient requires observation on the inpatient psychiatric unit for safety, and stabilization. Admit inpatient. Involuntary status. I have completed first opinion. Consult for second opinion. Plus healthcare surrogate and guardian advocate. Consult to the hospitalist. I will continue the Seroquel as ordered by Dr. De Oliveira prior to transfer. CIWA scale with Ativan for the management of any withdrawal. I will also start the patient on a Librium taper. Seizure and fall precautions. Thiamine and folate supplementation. Atarax as needed for anxiety. Haldol as needed for agitation. Vitals every shift. Counselor to see. Disposition planning. Estimated length of stay: 5-7 days. Vasyl Flowers /8:43 AM /9:22 AM MTDJonathan
[2017-01-01] MEDS: LORazepam 1 MG TAB PO PRN (13:45)
[2017-01-01 14:08] LABS: ALKALINE PHOSPHATASE 79 U/L (45-117); ALT (GPT) 46 U/L (10-53); ANION GAP 8 MEQ/L (5-15); AST (GOT) 42 U/L (15-37); BICARBONATE 25.8 MEQ/L (21.0-32.0); BLOOD UREA NITROGEN 13 MG/DL (7-18); CHLORIDE 103 MEQ/L (98-107); GLOMERULAR FILTRATION RATE 81 ML/MIN (>89); MAGNESIUM 1.4 MG/DL (1.5-2.5); POTASSIUM 3.8 MEQ/L (3.5-5.1); SODIUM (NA) 137 MEQ/L (136-145); TOTAL BILIRUBIN ADULT 0.6 MG/DL (0.2-1.0)
--- NOTE | 2017-01-01 16:53 | PD.CONS ---
HPI Service [facility] Hospitalists Consult Requested By Psychiatric services Reason for Consult Medical management Primary Care Physician Unknown Diagnoses: History of Present Illness Written by Tiki Mercado PA-C acting as scribe for Dr. Fallon on 01/01/17 at 16 :30. This is a 56-year-old female with a past medical history significant for GERD, diverticulosis, alcoholism and a history of intentional overdose 7 years ago who was found unresponsive by her daughter and brought to [facility] ED on . There was also the possibility the patient overdosed on Wellbutrin. Ethyl alcohol level was 295. She required intubation with subsequent extubation. CIWA protocol was initiated. She had elevated troponin levels but was felt to be possibly due to tachycardia. Follow-up troponin showed a downward trend and EKG showed no evidence of ischemia. Patient had multiple electrolyte abnormalities including hypokalemia, hypocalcemia and hypomagnesemia which responded well to treatment. CT of the head was obtained and showed no acute hemorrhage, mass or infarction. Liver ultrasound showed fatty liver with mild enlargement which was felt to be due to alcohol use. Patient is now been admitted to the med/psychiatric unit and hospitalist services have been consulted for medical management. Patient seen and examined today. Patient reports that she feels well overall. She denies any complaints at present. She states she's been eating well. She denies any complaints of headache, dizziness or vision changes. She denies any fever or chills. She denies any chest pain or shortness of breath. She does report some cough with occasional sputum production. She denies any nausea, vomiting or abdominal pain. She denies any diarrhea, constipation or urinary complaints. Chest x- ray 12/30/16 showed no evidence of acute disease. Review of Systems Except as stated in HPI: all other systems reviewed are Neg Past Family Social History Allergies: Coded Allergies: No Known Allergies (Verified , 12/28/16) Past Medical History GERD History of intentional overdose 7 years ago Alcoholism Diverticulosis Past Surgical History Bilateral tubal ligation Reported Medications No reported home medications Active Ordered Medications Current Medications Medications (Trade) Dose Ordered Sig/Yasmine Route Start Time Stop Time Status Last Admin (Haldol Inj) 5 mg Q8H PRN IM 12/31/16 22:15 12/31/16 22:13 (Librium) 25 mg QID PO 12/31/16 22:00 01/01/17 13:45 (Tylenol) 650 mg Q4H PRN PO 12/31/16 22:15 (Milk Of Magnesia Liq) 30 ml DAILY PRN PO 12/31/16 22:15 (Mag-Al Plus Susp Liq) 30 ml Q6H PRN PO 12/31/16 22:15 (Habitrol 21 Mg Patch.24 Hr) 1 patch DAILY T-DERMAL 01/01/17 09:00 Miscellaneous Information 1 HS T-DERMAL 01/01/17 21:00 (Romazicon Inj) 0.2 mg Q1M PRN IV PUSH 01/01/17 08:45 (Ativan) 1 mg Q4H PRN PO 01/01/17 08:45 01/01/17 13:45 (Ativan Inj) 1 mg Q4H PRN IV PUSH 01/01/17 08:45 (Ativan) 2 mg Q2H PRN PO 01/01/17 08:45 (Ativan Inj) 2 mg Q2H PRN IV PUSH 01/01/17 08:45 (Ativan Inj) 2 mg Q1H PRN IV PUSH 01/01/17 08:45 (Ativan Inj) 2 mg Q15M PRN IV PUSH 01/01/17 08:45 (SEROquel) 25 mg BID PO 01/01/17 09:00 (Vitamin B1) 100 mg DAILY PO 01/01/17 09:00 01/01/17 09:27 (Folate) 1 mg DAILY PO 01/01/17 09:00 01/01/17 09:27 (Atarax) 25 mg Q6H PRN PO 01/01/17 09:00 Family History Mother, age 72, lymphoma Father, age 65, [place] Social History Patient reports tobacco use of three quarters of a pack to 1 pack per day for the past 10 years. Patient reports Alkol consumption of 4-5 shots of vodka daily. Patient states she's been drinking since the age of 19. Patient denies any illicit drug use. Physical Exam Vital Signs Vital Signs Date Time Temp Pulse Resp B/P Pulse Ox O2 Delivery O2 Flow Rate FiO2 01/01/17 05:57 97.9 101 15 126/94 95 12/31/16 20:15 98.4 104 19 131/91 95 Physical Exam GENERAL: This is a well-nourished, well-developed patient, in no apparent distress. Sitting up in hospital bed. Daughters at the bedside. SKIN: No rashes, ecchymoses or lesions. Cool and dry. HEAD: Atraumatic. Normocephalic. No temporal or scalp tenderness. EYES: Pupils equal round and reactive. Extraocular motions intact. No scleral icterus. No injection or drainage. ENT: Nose without bleeding or purulent drainage. Throat without erythema, tonsillar hypertrophy or exudate. Uvula midline. Airway patent. NECK: Trachea midline. No lymphadenopathy. Supple, nontender, no meningeal signs. CARDIOVASCULAR: Regular rate and rhythm without murmurs, gallops, or rubs. RESPIRATORY: Clear to auscultation. Breath sounds equal bilaterally. No wheezes , rales, or rhonchi. GASTROINTESTINAL: Abdomen soft, non-tender, nondistended. No hepato-splenomegaly , or palpable masses. No guarding. MUSCULOSKELETAL: Extremities without clubbing, cyanosis, or edema. No joint tenderness, effusion, or edema noted. No calf tenderness. NEUROLOGICAL: Awake and alert. Able to move all extremities. Hands are slightly tremulous. Normal speech. Laboratory Laboratory Tests Test 01/01/17 13:01 Sodium Level 137 Potassium Level 3.8 Chloride Level 103 Carbon Dioxide Level 25.8 Anion Gap 8 Blood Urea Nitrogen 13 Creatinine 0.74 Estimat Glomerular Filtration 81 Rate Random Glucose 97 Calcium Level 9.3 Magnesium Level 1.4 Total Bilirubin 0.6 Aspartate Amino Transf 42 (AST/SGOT) Alanine Aminotransferase 46 (ALT/SGPT) Alkaline Phosphatase 79 Total Protein 6.7 Albumin 3.1 Thyroid Stimulating Hormone 2.270 3rd Gen Result Diagram: 01/01/17 1301 Assessment and Plan Assessment and Plan 56-year-old female with a past medical history significant for GERD, diverticulosis, alcoholism and a history of intentional overdose 7 years ago who was found unresponsive by her daughter and brought to [facility] ED on . There was also the possibility the patient overdosed on Wellbutrin. Patient is now admitted to the med/psychiatric unit and hospitalist services have been consulted for medical management. Alcoholism Depression History of intentional overdose 7 years ago Management per psychiatric team AMS, returned to baseline Alcohol withdrawal Tachycardia Continue on metoprolol 12.5 mg twice a day [facility] protocol Patient on Librium taper as ordered by primary team Continue on thiamine and folate supplementation daily Monitor for signs of withdrawal Respiratory failure requiring intubation Now extubated Monitor respiratory status Fatty liver with enlargement Discussed with patient importance of alcohol cessation Hypomagnesemia Repletion ordered Follow-up with repeat lab studies in the morning Macrocytosis Related to alcohol use Ongoing tobaccoism Continues to nicotine patch Discussed importance of smoking cessation/counseling GERD PPI DVT prophylaxis Patient is ambulatory and is low risk Thank you very kindly for this consultation. We will continue to follow along with you. This note was transcribed by suleiman Mercado PA-C. I, Dr. Charis Fallon personally performed the history, physical exam, and medical decision making; and confirmed the accuracy of the information in the transcribed note. Authenticated by Dr. Charis Fallon on 01/01/17 at 16:30. Tiki Mercado Jan 01, 2017 16:53 Charis Fallon MD Jan 02, 2017 19:00
[2017-01-01] MEDS ORDERED: METOPROLOL TARTRATE 25 MG TAB PO ONE (17:30)
[2017-01-01] MEDS ORDERED: MAGNESIUM SULFATE 1 GM PREMIX 100 ML IV ONE (17:30)
[2017-01-01] MEDS: MAGNESIUM OXIDE 400 MG TAB PO SCH (17:30)
[2017-01-01] MEDS ORDERED: PILL SPLITTER OTHER PRN (17:45)
[2017-01-01] MEDS: METOPROLOL TARTRATE 25 MG TAB PO SCH (18:00)
--- NOTE | 2017-01-01 18:21 | HHI.PYPN ---
Subjective Remarks This is a request for a second opinion. Pt was seen, admission note reviewed and case discussed with nursing. Pt denies this event was a suicide attempt and denies depressed mood. However, I spoke with daughter who says her mother has been depressed, anxious and drinking excessively. Today pt describes a stable mood and denies suicidal ideation intent or plan. Objective Alert: Yes [place]: Person, Place, Date, Situation Mood: Oppositional Affect: Restricted Memory Intact: Immediate (not tested) Hallucinations: Auditory (denies) Delusions: Yes Delusion Type: Other (none elicited) Suicidal: Ideation (denies) Homicidal: Ideation (denies) Insight/Judgment poor Labs Test 01/01/17 13:01 Sodium Level 137 MEQ/L Potassium Level 3.8 MEQ/L Chloride Level 103 MEQ/L Carbon Dioxide Level 25.8 MEQ/L Anion Gap 8 MEQ/L Blood Urea Nitrogen 13 MG/DL Creatinine 0.74 MG/DL Estimat Glomerular Filtration 81 ML/MIN Rate Random Glucose 97 MG/DL Calcium Level 9.3 MG/DL Magnesium Level 1.4 MG/DL Total Bilirubin 0.6 MG/DL Aspartate Amino Transf 42 U/L (AST/SGOT) Alanine Aminotransferase 46 U/L (ALT/SGPT) Alkaline Phosphatase 79 U/L Total Protein 6.7 GM/DL Albumin 3.1 GM/DL Thyroid Stimulating Hormone 2.270 uIU/ML 3rd Gen Vitals/IOs Vital Signs Date Time Temp Pulse Resp B/P Pulse Ox O2 Delivery O2 Flow Rate FiO2 01/01/17 05:57 97.9 101 15 126/94 95 Assessment & Plan Problem List: (1) Major depressive disorder, single episode ICD Code: F32.9 (2) Alcohol withdrawal delirium ICD Code: F10.231 Assessment & Plan I agree with the first opinion to continue petition. Criteria include depressed mood and suicidal ideation. Justification for Cont. Inpt. Pt would decompensate in a less restrictive setting. Kade Mcdonnell DO Jan 01, 2017 18:21
[2017-01-01 18:46] VITALS: BP 126/82; PULSE 76; RESP 17; TEMP 98.2; O2SAT 96
[2017-01-01] MEDS: REMOVE OLD NICOTINE PATCH T-DERMAL SCH (21:00)
[2017-01-01] MEDS: LORazepam 2 MG/ML VIAL IV PUSH PRN ×2 (22:45→23:36)
[2017-01-02] MEDS: HALOPERIDOL LACTATE 5 MG/ML AMP IM PRN (00:29)
[2017-01-02] MEDS ORDERED: ZIPRASIDONE MESYLATE 20 MG VIAL IM ONE (00:45)
[2017-01-02] MEDS: LORazepam 1 MG TAB PO PRN ×4 (04:33→16:37)
[2017-01-02 05:19] VITALS: BP 150/99; PULSE 81; RESP 17; TEMP 98.3; O2SAT 98
[2017-01-02] MEDS: chlordiazePOXIDE 25 MG CAP PO SCH ×3 (08:18→21:21)
[2017-01-02] MEDS: METOPROLOL TARTRATE 25 MG TAB PO SCH ×2 (08:18→18:00)
[2017-01-02] MEDS: NICOTINE 21 MG/24 HR PATCH T-DERMAL SCH (08:19)
[2017-01-02] MEDS: QUEtiapine FUMARATE 25 MG TAB PO SCH ×2 (08:19→21:00)
[2017-01-02] MEDS: THIAMINE HCL 100 MG TAB PO SCH (08:19)
[2017-01-02] MEDS: FOLIC ACID 1 MG TAB PO SCH (08:19)
[2017-01-02] MEDS: MAGNESIUM OXIDE 400 MG TAB PO SCH (08:19)
--- NOTE | 2017-01-02 10:53 | HHI.PYPN ---
Subjective Remarks Patient seen and examined with nurse. Chart reviewed. Case discussed with nursing staff who reports that the patient was quite agitated overnight and received Geodon IM. On my examination this morning, the patient is somewhat tremulous. She is confused and believes that she is in her residence. She endorses audiovisual hallucinations. Denies side effects from medications. No physical complaints. Review of Systems ROS Limitations: Psychotic, Poor Historian Except as stated in HPI: all other systems reviewed are Neg Objective Alert: Yes [place]: Person, Date Mood: Anxious Affect: Restricted Memory Intact: Comment (not formally assessed) Hallucinations: Auditory (endorses) Delusions: No Delusion Type: Other (none elicited) Suicidal: Ideation (no SI) Homicidal: Ideation (no HI) Insight/Judgment Poor Remarks Hand tremor. No diaphoresis. No mydriasis. No tongue fasciculations noted. Grooming and hygiene poor. Thought process tangential. Labs Test 01/01/17 13:01 Sodium Level 137 MEQ/L Potassium Level 3.8 MEQ/L Chloride Level 103 MEQ/L Carbon Dioxide Level 25.8 MEQ/L Anion Gap 8 MEQ/L Blood Urea Nitrogen 13 MG/DL Creatinine 0.74 MG/DL Estimat Glomerular Filtration 81 ML/MIN Rate Random Glucose 97 MG/DL Calcium Level 9.3 MG/DL Magnesium Level 1.4 MG/DL Total Bilirubin 0.6 MG/DL Aspartate Amino Transf 42 U/L (AST/SGOT) Alanine Aminotransferase 46 U/L (ALT/SGPT) Alkaline Phosphatase 79 U/L Total Protein 6.7 GM/DL Albumin 3.1 GM/DL Thyroid Stimulating Hormone 2.270 uIU/ML 3rd Gen Labs reviewed. Vitals/IOs Vital Signs Date Time Temp Pulse Resp B/P Pulse Ox O2 Delivery O2 Flow Rate FiO2 01/02/17 05:19 98.3 81 17 150/99 98 Intake and Output 01/01/17 01/01/17 01/02/17 08:00 16:00 00:00 Intake Total 120 ml 880 ml 960 ml Output Total 1 ml Balance 120 ml 879 ml 960 ml Assessment & Plan Problem List: (1) Major depressive disorder, single episode ICD Code: F32.9 (2) Alcohol withdrawal delirium ICD Code: F10.231 Assessment & Plan Patient remains delirious from suspected alcohol withdrawal. Titrate Librium to 50 mg 3 times daily and continue CIWA with Ativan for management of withdrawal. Titrate Seroquel to 37.5 mg twice daily. Continue to monitor on the medical psychiatric unit. Hospitalist input appreciated. Continue other medications and care as ordered. Justification for Cont. Inpt. Complicating conditions. Medication changes. High risk for decompensation and less restrictive environment. Discharge Planning Pending stabilization Vasyl Sepulveda MD Jan 02, 2017 10:53
[2017-01-02] MEDS ORDERED: cloNIDine HCL 0.1 MG TAB PO PRN (12:30)
[2017-01-02 13:28] VITALS: BP 144/95; PULSE 80; RESP 16; TEMP 97.5; O2SAT 95
--- NOTE | 2017-01-02 16:10 | HHI.PR ---
Subjective Remarks In bed, children at bedside. Was nauseated last night. No nausea today and was able to eat. Per nurse she ate all meals. No n/v/d/c. No fever or chills. Denies sob, chest pain. Objective Vitals Vital Signs Date Time Temp Pulse Resp B/P Pulse Ox O2 Delivery O2 Flow Rate FiO2 01/02/17 13:28 97.5 80 16 144/95 95 01/02/17 05:19 98.3 81 17 150/99 98 01/01/17 18:46 98.2 76 17 126/82 96 I/O 01/01/17 01/01/17 01/01/17 01/02/17 01/02/17 01/02/17 06:59 14:59 22:59 06:59 14:59 22:59 Intake Total 120 ml 880 ml 960 ml 260 ml 960 ml Output Total 1 ml Balance 120 ml 879 ml 960 ml 260 ml 960 ml Intake Oral 120 ml 880 ml 960 ml 120 ml 960 ml IV Total 140 ml Output Urine Total 1 ml # Voids 1 5 1 2 Result Diagram: 01/01/17 1301 Objective Remarks GENERAL: This is a well-nourished, well-developed patient, in no apparent distress. Sitting up in hospital bed. Daughters at the bedside. SKIN: No rashes, ecchymoses or lesions. Cool and dry. CARDIOVASCULAR: Regular rate and rhythm without murmurs, gallops, or rubs. RESPIRATORY: Clear to auscultation. Breath sounds equal bilaterally. No wheezes , rales, or rhonchi. GASTROINTESTINAL: Abdomen soft, non-tender, nondistended. No hepato-splenomegaly , or palpable masses. No guarding. MUSCULOSKELETAL: Extremities without clubbing, cyanosis, or edema. No joint tenderness, effusion, or edema noted. No calf tenderness. NEUROLOGICAL: Awake and alert. Able to move all extremities. Hands are slightly tremulous. Normal speech. A/P Assessment and Plan 56-year-old female with a past medical history significant for GERD, diverticulosis, alcoholism and a history of intentional overdose 7 years ago who was found unresponsive by her daughter and brought to [facility] ED on . There was also the possibility the patient overdosed on Wellbutrin. Patient is now admitted to the med/psychiatric unit and hospitalist services have been consulted for medical management. Alcoholism Depression History of intentional overdose 7 years ago Management per psychiatric team AMS, returned to baseline Alcohol withdrawal Tachycardia Continue on metoprolol 12.5 mg twice a day CIWA protocol Patient on Librium taper as ordered by primary team Continue on thiamine and folate supplementation daily Monitor for signs of withdrawal Respiratory failure requiring intubation Now extubated Monitor respiratory status Fatty liver with enlargement Discussed with patient importance of alcohol cessation Hypomagnesemia Repletion ordered Follow-up with repeat lab studies in the morning Macrocytosis Related to alcohol use Ongoing tobaccoism Continues to nicotine patch Discussed importance of smoking cessation/counseling GERD PPI DVT prophylaxis Patient is ambulatory and is low risk Thank you for this consultation. We will continue to follow along with you. Discussed with the patient, nurse, family at bedside Charis Fallon MD Jan 02, 2017 16:10
[2017-01-02 18:35] VITALS: BP 121/84; PULSE 97; RESP 18; TEMP 97.4; O2SAT 94
[2017-01-02] MEDS: LORazepam 2 MG TAB PO PRN ×2 (20:08→23:08)
[2017-01-02] MEDS: REMOVE OLD NICOTINE PATCH T-DERMAL SCH (21:00)
[2017-01-03] MEDS: LORazepam 2 MG/ML VIAL IV PUSH PRN (01:22)
[2017-01-03] MEDS ORDERED: ZIPRASIDONE MESYLATE 20 MG VIAL IM ONE (05:15)
[2017-01-03 06:18] VITALS: BP 165/81; PULSE 90; RESP 16; TEMP 97.7; O2SAT 96
[2017-01-03] MEDS: QUEtiapine FUMARATE 25 MG TAB PO SCH ×2 (07:53→20:14)
[2017-01-03] MEDS: chlordiazePOXIDE 25 MG CAP PO SCH ×3 (07:53→20:14)
[2017-01-03] MEDS: MAGNESIUM OXIDE 400 MG TAB PO SCH (07:54)
[2017-01-03] MEDS: NICOTINE 21 MG/24 HR PATCH T-DERMAL SCH (07:54)
[2017-01-03] MEDS: METOPROLOL TARTRATE 25 MG TAB PO SCH ×2 (07:54→16:05)
[2017-01-03] MEDS: FOLIC ACID 1 MG TAB PO SCH (07:54)
[2017-01-03] MEDS: THIAMINE HCL 100 MG TAB PO SCH (07:54)
--- NOTE | 2017-01-03 11:22 | HHI.PR ---
Subjective Remarks Patient in bed in restraints. She was not able to sleep overnight. She was noted more disoriented, and agitated requiring restraints. No fever or chills. No n/v/d/c. She is sleepy but arousable at this time Objective Vitals Vital Signs Date Time Temp Pulse Resp B/P Pulse Ox O2 Delivery O2 Flow Rate FiO2 01/03/17 06:18 97.7 90 16 165/81 96 01/02/17 18:35 97.4 97 18 121/84 94 01/02/17 13:28 97.5 80 16 144/95 95 I/O 01/02/17 01/02/17 01/02/17 01/03/17 01/03/17 01/03/17 06:59 14:59 22:59 06:59 14:59 22:59 Intake Total 260 ml 960 ml 1680 ml 0 ml Balance 260 ml 960 ml 1680 ml 0 ml Intake Oral 120 ml 960 ml 1680 ml 0 ml IV Total 140 ml # Voids 1 2 2 0 Result Diagram: 01/01/17 1301 Objective Remarks GENERAL: This is a well-nourished, well-developed patient, in no apparent distress. Sitting up in hospital bed. Daughters at the bedside. SKIN: No rashes, ecchymoses or lesions. Cool and dry. CARDIOVASCULAR: Regular rate and rhythm without murmurs, gallops, or rubs. RESPIRATORY: Clear to auscultation. Breath sounds equal bilaterally. No wheezes , rales, or rhonchi. GASTROINTESTINAL: Abdomen soft, non-tender, nondistended. No hepato-splenomegaly , or palpable masses. No guarding. MUSCULOSKELETAL: Extremities without clubbing, cyanosis, or edema. No joint tenderness, effusion, or edema noted. No calf tenderness. NEUROLOGICAL: Awake and alert. Able to move all extremities. Hands are slightly tremulous. Normal speech. A/P Assessment and Plan 56-year-old female with a past medical history significant for GERD, diverticulosis, alcoholism and a history of intentional overdose 7 years ago who was found unresponsive by her daughter and brought to [facility] ED on . There was also the possibility the patient overdosed on Wellbutrin. Patient is now admitted to the med/psychiatric unit and hospitalist services have been consulted for medical management. Alcoholism Depression History of intentional overdose 7 years ago Management per psychiatric team AMS, on/off Alcohol withdrawal Tachycardia Continue on metoprolol 12.5 mg twice a day CIWA protocol Patient on Librium taper as ordered by primary team Continue on thiamine and folate supplementation daily Monitor for signs of withdrawal Monitor ammonia level Check cbc, bmp Respiratory failure requiring intubation Now extubated Monitor respiratory status Fatty liver with enlargement Discussed with patient importance of alcohol cessation Hypomagnesemia Repletion ordered Follow-up with repeat lab studies in the morning Macrocytosis Related to alcohol use Ongoing tobaccoism Continues to nicotine patch Discussed importance of smoking cessation/counseling GERD PPI DVT prophylaxis Patient is ambulatory and is low risk Thank you for this consultation. We will continue to follow along with you. Discussed with the patient, nurse Charis Fallon MD Jan 03, 2017 11:22
--- NOTE | 2017-01-03 15:59 | HHI.PYPN ---
Subjective Remarks patient seen and examined with nurse. Chart reviewed. Patient received approximately 8 mg of Ativan overnight by JOSE. Case discussed with nursing staff. Apparently the patient remained agitated despite the Ativan and received Geodon IM. On my examination today, patient calm. Oriented to [place] and 2016 but believes it is December 12. Denies AVH at this time. Says that she gets "edgy" at the end of the day. No SI or HI. Denies side effects from medications. No physical complaints. Review of Systems ROS Limitations: Poor Historian Except as stated in HPI: all other systems reviewed are Neg Objective Alert: Yes [place]: Person, Place ([place]), Date (2016) Mood: Calm Affect: Euthymic Memory Intact: Comment (not formally assessed) Hallucinations: Other (denies AVH at this time) Delusions: No Delusion Type: Other (no delusions) Suicidal: Ideation (no SI) Homicidal: Ideation (no HI) Insight/Judgment Poor Remarks No hand tremor, no tongue fasciculations, no mydriasis, no diaphoresis, no other signs of GABAergic withdrawal. No other motoric abnormalities noted. Thought process fairly linear at this time. Labs Labs reviewed. Vitals/IOs Vital Signs Date Time Temp Pulse Resp B/P Pulse Ox O2 Delivery O2 Flow Rate FiO2 01/03/17 06:18 97.7 90 16 165/81 96 Intake and Output 01/02/17 01/02/17 01/03/17 08:00 16:00 00:00 Intake Total 260 ml 960 ml 1680 ml Balance 260 ml 960 ml 1680 ml Assessment & Plan Problem List: (1) Major depressive disorder, single episode ICD Code: F32.9 (2) Alcohol withdrawal delirium ICD Code: F10.231 Assessment & Plan Given high Ativan requirement overnight, I will not taper Librium at this time. Continue Librium 50mg TID with plans to taper. Withdrawal seems well controlled presently. Ongoing encephalopathy despite lack of withdrawal symptoms suggests we should expand differential for other causes of delirium. Check B12, HIV, RPR, ammonia. Continue Seroquel as ordered. Geodon PRN agitation. EKG for QTc. Hold antipsychotics if QTc>450ms. Continue thiamine and folate. Continue one to one. Hospitalist input appreciated. Continue other medications and care as ordered. Justification for Cont. Inpt. Complicating conditions. High risk for decompensation in less restrictive environment. Discharge Planning Pending psychiatric stabilization Vasyl Sepulveda MD Jan 03, 2017 15:59
[2017-01-03 16:00] VITALS: BP 154/102; PULSE 83; RESP 16; TEMP 97.7; O2SAT 97
[2017-01-03] MEDS ORDERED: ZIPRASIDONE MESYLATE 20 MG VIAL IM PRN (18:00)
[2017-01-03] MEDS: REMOVE OLD NICOTINE PATCH T-DERMAL SCH (20:14)
[2017-01-04 05:24] VITALS: BP 150/96; PULSE 77; RESP 16; TEMP 97.7; O2SAT 97
[2017-01-04] MEDS: METOPROLOL TARTRATE 25 MG TAB PO SCH ×2 (06:00→17:15)
[2017-01-04] MEDS: QUEtiapine FUMARATE 25 MG TAB PO SCH ×2 (08:51→20:52)
[2017-01-04] MEDS: THIAMINE HCL 100 MG TAB PO SCH (08:51)
[2017-01-04] MEDS: MAGNESIUM OXIDE 400 MG TAB PO SCH (08:51)
[2017-01-04] MEDS: chlordiazePOXIDE 25 MG CAP PO SCH ×3 (08:51→20:52)
[2017-01-04] MEDS: FOLIC ACID 1 MG TAB PO SCH (08:51)
[2017-01-04] MEDS: NICOTINE 21 MG/24 HR PATCH T-DERMAL SCH (08:52)
--- NOTE | 2017-01-04 09:50 | HHI.PR ---
Subjective Remarks Was noted more awake and alert in the morning , ate 70% of her breakfast, ambulated to the bath. She is tired and lethargic at this time, she did receive librium, she is off ativan. less agitated. Not able to follow commands or answer questions at this time. Objective Vitals Vital Signs Date Time Temp Pulse Resp B/P Pulse Ox O2 Delivery O2 Flow Rate FiO2 01/04/17 05:24 97.7 77 16 150/96 97 01/03/17 16:00 97.7 83 16 154/102 97 I/O 01/03/17 01/03/17 01/03/17 01/04/17 01/04/17 01/04/17 07:00 15:00 23:00 07:00 15:00 23:00 Intake Total 0 ml 240 ml 120 ml 240 ml Balance 0 ml 240 ml 120 ml 240 ml Intake Oral 0 ml 240 ml 120 ml 240 ml # Voids 0 1 1 Result Diagram: 01/01/17 1301 Objective Remarks GENERAL: This is a well-nourished, well-developed patient, in no apparent distress. Sitting up in hospital bed. Daughters at the bedside. SKIN: No rashes, ecchymoses or lesions. Cool and dry. CARDIOVASCULAR: Regular rate and rhythm without murmurs, gallops, or rubs. RESPIRATORY: Clear to auscultation. Breath sounds equal bilaterally. No wheezes , rales, or rhonchi. GASTROINTESTINAL: Abdomen soft, non-tender, nondistended. No hepato-splenomegaly , or palpable masses. No guarding. MUSCULOSKELETAL: Extremities without clubbing, cyanosis, or edema. No joint tenderness, effusion, or edema noted. No calf tenderness. NEUROLOGICAL: Awake and alert. Able to move all extremities. Hands are slightly tremulous. Normal speech. A/P Assessment and Plan 56-year-old female with a past medical history significant for GERD, diverticulosis, alcoholism and a history of intentional overdose 7 years ago who was found unresponsive by her daughter and brought to [facility] ED on . There was also the possibility the patient overdosed on Wellbutrin. Patient is now admitted to the med/psychiatric unit and hospitalist services have been consulted for medical management. Alcoholism Depression History of intentional overdose 7 years ago Management per psychiatric team AMS, on/off Alcohol withdrawal Tachycardia Continue on metoprolol 12.5 mg twice a day CIWA protocol Patient on Librium taper as ordered by primary team Continue on thiamine and folate supplementation daily Monitor for signs of withdrawal Monitor ammonia level, back to normal Check cbc, bmp Respiratory failure requiring intubation Now extubated Monitor respiratory status Fatty liver with enlargement Discussed with patient importance of alcohol cessation Hypomagnesemia Repletion ordered Follow-up with repeat lab studies in the morning Macrocytosis Related to alcohol use Ongoing tobaccoism Continues to nicotine patch Discussed importance of smoking cessation/counseling GERD PPI DVT prophylaxis Patient is ambulatory and is low risk Thank you for this consultation. We will continue to follow along with you. Discussed with the patient, nurse, Charis Hanson MD Jan 04, 2017 09:50
--- NOTE | 2017-01-04 15:44 | EKG ---
Date Performed: 01/03/2017 Time Performed: 17:20:21 PTAGE: 56 years EKG: Sinus rhythm POSSIBLE ANTERIOR MYOCARDIAL INFARCTION , OF INDETERMINATE AGE ABNORMAL ECG PREVIOUS TRACING : 12/30/2016 02.25 DOCTOR: Randell Claire Interpretating Date/Time 01/04/2017 15:40:43
[2017-01-04 17:21] VITALS: BP 104/65; PULSE 87; RESP 16; TEMP 97.9; O2SAT 94
--- NOTE | 2017-01-04 17:30 | HHI.PYPN ---
Subjective Remarks Patient seen for follow-up with nurse, chart reviewed. Patient was seen in the ER on 12/29/16 for altered mental status and alcohol intoxication with alleged Wellbutrin overdose. Patient blood alcohol level was 295 at that time in which she required intubation and was subsequently extubated. Patient was maintained on Seroquel protocol and management with Librium. Patient yesterday had required soft restraints as she was disoriented and agitated. As per psychiatry follow-up note patient had received Ativan overnight as well as Geodon intramuscular injection for agitation. Patient was continued on Librium 50 mg 3 times a day to avoid withdrawals. As per nursing report today patient was sedated yesterday, continued to be confused in the C1 score of 7 but did not require any when necessary Ativan as overnight. Patient was seen several times lying in hospital bed asleep but was able to wake up for interview later this afternoon. Patient found sitting up on hospital bed eating lunch, noted to be slightly tremulous but able to engage in interview. Patient states that she had been sleeping all day because of the medication she is on and recalls the reason having been admitted to the hospital was that she had drank the night prior with some friends and decided to "continue on the republican" which she states had a blackout and does not recall events thereafter. Patient states that recently one of her close friends had and was feeling sad about that. Patient noted to be slightly lethargic but able to maintain attention and continue interview with technical publications writer. Illegible vision overdose will be continued to be explored with patient as patient stated from Librium and is able to maintain more attention and concentration during interview. Patient at that time denies having any suicidal ideations but interview was limited due to current lethargy from medications at this time. Possible rehabilitation program as part of discharge planning was discussed with patient reporting will consider. Review of Systems ROS Limitations: Other (slightly lethargic but able to maintain attention for interview) Except as stated in HPI: all other systems reviewed are Neg Other Slightly tremulous with hands Objective Alert: Yes [place]: Person, Place ([place]) Mood: Calm Affect: Other (slightly constricted) Memory Intact: Comment (not formally assessed) Hallucinations: Other (denies AVH at this time) Delusions: No Delusion Type: Other (no delusions) Suicidal: Ideation (no SI) Homicidal: Ideation (no HI) Insight/Judgment Poor insight, fair impulse control and poor judgment Labs Test 01/03/17 20:31 Ammonia 27 MCMOL/L Vitamin B12 Level 853 PG/ML Rapid Plasma Reagin NON-REACTIVE HIV (1&2) Antibody NEGATIVE Vitals/IOs Vital Signs Date Time Temp Pulse Resp B/P Pulse Ox O2 Delivery O2 Flow Rate FiO2 01/04/17 05:24 97.7 77 16 150/96 97 Intake and Output 01/03/17 01/03/17 01/04/17 08:00 16:00 00:00 Intake Total 0 ml 240 ml 120 ml Balance 0 ml 240 ml 120 ml Assessment & Plan Problem List: (1) Major depressive disorder, single episode ICD Code: F32.9 (2) Alcohol withdrawal delirium ICD Code: F10.231 Assessment & Plan Estimated LOS: 5-7 days. Patient at this time continues to be slightly lethargic due to current management of withdrawal with Librium. Patient has a within a require when necessary Ativan and had a CIWA score of 7 which will be continued to be monitored. Patient will continue quetiapine 37.5 by mouth twice a day, decrease Librium to 50 a.m. 20 5 PM and 50 at bedtime with downward titration of no more than 25% per day. Continue CIWA protocol. Continue medical management as per primary medical team. Monitor for medication response and possible adverse drug reactions. Withdrawal precautions. Fall precautions. Discharge planning in progress collateral pending. Justification for Cont. Inpt. Patient at risk for decompensation lower level of care Discharge Planning In progress Дмитрий Husain MD Jan 04, 2017 17:30
[2017-01-04 17:50] VITALS: BP 99/77; PULSE 100; RESP 18; O2SAT 97
[2017-01-04 18:10] VITALS: BP 90/62; PULSE 97; RESP 16; TEMP 98.5; O2SAT 94
[2017-01-04] MEDS ORDERED: SODIUM CHLOR 0.9% 1000 ML INJ 1,000 ML IV ONE ×2 (18:30→20:00)
[2017-01-04] MEDS ORDERED: chlordiazePOXIDE 25 MG CAP PO ONE (18:30)
[2017-01-04 18:49] VITALS: BP 103/65; PULSE 96; RESP 16; TEMP 98.8; O2SAT 95
--- NOTE | 2017-01-04 19:03 | RADRPT ---
EXAM DATE/TIME: 01/04/2017 18:26 [place] COMPARISON: No previous studies available for comparison. INDICATIONS : Fall today RADIATION DOSE: 44.41 CTDIvol (mGy) MEDICAL HISTORY : Diverticulitis. SURGICAL HISTORY : Tubal ligation. ENCOUNTER: Initial ACUITY: 1 day PAIN SCALE: 0/10 LOCATION: cranial TECHNIQUE: Multiple contiguous axial images were obtained of the head. Using automated exposure control and adj ustment of the mA and/or kV according to patient size, radiation dose was kept as low as reasonably a chievable to obtain optimal diagnostic quality images. DICOM format image data is available electro nically for review and comparison. FINDINGS: CEREBRUM: The ventricles are normal for age. No evidence of midline shift, mass lesion, hemorrhage or acute in farction. No extra-axial fluid collections are seen. POSTERIOR FOSSA: The cerebellum and brainstem are intact. The 4th ventricle is midline. The cerebellopontine angle i s unremarkable. EXTRACRANIAL: The visualized portion of the orbits is intact. SKULL: The calvaria is intact. No evidence of skull fracture. CONCLUSION: Normal examination for a patient of this age. No significant change has occurred. Sarkis Amador MD on January 04, 2017 at 19:01 Board Certified Radiologist. This report was verified electronically.
[2017-01-04] MEDS: REMOVE OLD NICOTINE PATCH T-DERMAL SCH (21:00)
[2017-01-04 21:09] VITALS: BP 118/76; PULSE 97; RESP 18; O2SAT 98
[2017-01-05 01:00] VITALS: BP 132/87; PULSE 87; RESP 20; TEMP 98.7; O2SAT 95
[2017-01-05 05:29] VITALS: BP 139/85; PULSE 80; RESP 16; TEMP 97.6; O2SAT 94
[2017-01-05] MEDS: METOPROLOL TARTRATE 25 MG TAB PO SCH (06:00)
--- NOTE | 2017-01-05 09:18 | HHI.PR ---
Subjective Remarks More awake and alert today. No cp, sob, n/v/d/c. Patient was disoriented last night and fell. She says she did hit her buttocks and poss her head. CT head negative. Patient denies having any headache, change in vision, motor or sensory deficit. No n/v/d/c. Able to eat. No tremors at this time. Encourage PO intake. Objective Vitals Vital Signs Date Time Temp Pulse Resp B/P Pulse Ox O2 Delivery O2 Flow Rate FiO2 01/05/17 05:29 97.6 80 16 139/85 94 01/05/17 01:00 98.7 87 20 132/87 95 01/04/17 21:09 97 18 118/76 98 01/04/17 18:49 98.8 96 16 103/65 95 01/04/17 18:10 98.5 97 16 90/62 94 01/04/17 17:50 100 18 99/77 97 01/04/17 17:21 97.9 87 16 104/65 94 I/O 01/04/17 01/04/17 01/04/17 01/05/17 01/05/17 01/05/17 07:00 15:00 23:00 07:00 15:00 23:00 Intake Total 240 ml 1440 ml 360 ml 828 ml 480 ml Output Total 1 ml Balance 240 ml 1439 ml 360 ml 828 ml 480 ml Intake Oral 240 ml 1440 ml 360 ml 0 ml 480 ml IV Total 828 ml Output Urine Total 1 ml # Voids 1 1 1 Result Diagram: 01/01/17 1301 Imaging Last Impressions Head CT 01/04/17 0000 Signed Impressions: Service Date/Time: Wednesday, January 04, 2017 18:26 - CONCLUSION: Normal examination for a patient of this age. No significant change has occurred. Sarkis Amador MD Objective Remarks GENERAL: This is a well-nourished, well-developed patient, in no apparent distress. Sitting up in hospital bed. Daughters at the bedside. SKIN: No rashes, ecchymoses or lesions. Cool and dry. CARDIOVASCULAR: Regular rate and rhythm without murmurs, gallops, or rubs. RESPIRATORY: Clear to auscultation. Breath sounds equal bilaterally. No wheezes , rales, or rhonchi. GASTROINTESTINAL: Abdomen soft, non-tender, nondistended. No hepato-splenomegaly , or palpable masses. No guarding. MUSCULOSKELETAL: Extremities without clubbing, cyanosis, or edema. No joint tenderness, effusion, or edema noted. No calf tenderness. NEUROLOGICAL: Awake and alert. Able to move all extremities. Hands are slightly tremulous. Normal speech. A/P Assessment and Plan 56-year-old female with a past medical history significant for GERD, diverticulosis, alcoholism and a history of intentional overdose 7 years ago who was found unresponsive by her daughter and brought to [facility] ED on . There was also the possibility the patient overdosed on Wellbutrin. Patient is now admitted to the med/psychiatric unit and hospitalist services have been consulted for medical management. Alcoholism Depression History of intentional overdose 7 years ago Management per psychiatric team AMS, on/off Alcohol withdrawal Tachycardia Continue on metoprolol 12.5 mg twice a day CIWA protocol Patient on Librium taper as ordered by primary team Continue on thiamine and folate supplementation daily Monitor for signs of withdrawal Monitor ammonia level, back to normal Check cbc, bmp Fall 01/04/17. CT head negative ,.Patient symptomatic. She is ambulating. Respiratory failure requiring intubation. Now extubated and sattign well on room air. Monitor respiratory status. Fatty liver with enlargement Discussed with patient importance of alcohol cessation Hypomagnesemia Repletion ordered Follow-up with repeat lab studies in the morning Macrocytosis Related to alcohol use Ongoing tobaccoism Continues to nicotine patch Discussed importance of smoking cessation/counseling GERD PPI Encourage PO intake. DVT prophylaxis Patient is ambulatory and is low risk Thank you for this consultation. We will continue to follow along with you. Discussed with the patient, nurse Charis Fallon MD Jan 05, 2017 09:18
--- NOTE | 2017-01-05 09:28 | HHI.PYPN ---
Subjective Remarks Patient seen for follow-up, chart reviewed. As per nursing report patient looks better, did not require any when necessary Ativan overnight, slept well but still noted to be sad and with blunted affect. Patient fell yesterday which primary medical team ordered imaging and had a head CT which was negative for any acute injury or abnormalities. Patient seen sitting on hospital bed eating breakfast and able to engage in interview today. Patient stated she been feeling "good" having slept well and mood being "all right." Patient recalls having slept yesterday while in the bathroom after she was washing her hands and states that she lost her balance and denies having had dizziness or lightheadedness at that time. Patient states that she had been visited by her daughter yesterday and had enjoyed seeing her. Patient states that she recalls events prior to her admission in which she "drank too much" and denies having had suicidal intent at that time. She denies having had any overdose with Wellbutrin but states that the last time she had a suicide attempt was many years ago when her mother . Patient recalls that over the past couple of months she has had it for several family members involved in motor vehicle accidents which have been distressing for her. She also states that recently she had has been having a lot of stress at work and having had heard news of her recent loss of friend. Patient agrees to be involved in rehabilitation program for alcohol use, still unsure whether she would want to commit to an inpatient rehabilitation program but is still considering it. Patient at this time denies any SI, HI, AVH or delusions. Review of Systems Except as stated in HPI: all other systems reviewed are Neg Objective Alert: Yes [place]: Person, Place ([place]), Situation Mood: Calm Affect: Other (slightly constricted) Memory Intact: Comment (not formally assessed) Hallucinations: Other (denies AVH at this time) Delusions: No Delusion Type: Other (no delusions) Suicidal: Ideation (no SI) Homicidal: Ideation (denies) Insight/Judgment Improved insight, fair impulse control and judgment Vitals/IOs Vital Signs Date Time Temp Pulse Resp B/P Pulse Ox O2 Delivery O2 Flow Rate FiO2 01/05/17 05:29 97.6 80 16 139/85 94 Intake and Output 01/04/17 01/04/17 01/04/17 07:59 15:59 23:59 Intake Total 240 ml 1440 ml 360 ml Output Total 1 ml Balance 240 ml 1439 ml 360 ml Assessment & Plan Problem List: (1) Major depressive disorder, single episode ICD Code: F32.9 (2) Alcohol withdrawal delirium ICD Code: F10.231 Assessment & Plan Estimated LOS: 5-7 days. Patient this time continues to be managed for alcohol withdrawal, did not require Ativan overnight with low CIWA scores. Librium will continue to be tapered. Patient had a fall yesterday which imaging did not show any acute processes. Patient encouraged to utilize to help of staff if she wants to get up from bed she agreed to. Patient noted to to have a blunted affect, has had significant psychosocial stressors prior to this admission which starting antidepressant would be of benefit at this time as well as consideration for rehabilitation program post discharge. We'll start sertraline 25 mg by mouth daily with upward titration for depression. Monitor medication response and possible adverse drug reactions. Recent was psychotherapy provided. Discharge planning in progress. Justification for Cont. Inpt. Patient risk for decompensation at lower level care Discharge Planning In progress Дмитрий Husain MD Jan 05, 2017 09:28
[2017-01-05] MEDS ORDERED: SERTRALINE HCL 50 MG TAB PO SCH (09:30)
[2017-01-05 09:32] VITALS: BP 91/57; PULSE 88; RESP 16; TEMP 97.3; O2SAT 95
[2017-01-05] MEDS: chlordiazePOXIDE 25 MG CAP PO SCH ×2 (09:47→21:56)
[2017-01-05] MEDS: NICOTINE 21 MG/24 HR PATCH T-DERMAL SCH (09:48)
[2017-01-05] MEDS: MAGNESIUM OXIDE 400 MG TAB PO SCH (09:48)
[2017-01-05] MEDS: THIAMINE HCL 100 MG TAB PO SCH (09:48)
[2017-01-05] MEDS: FOLIC ACID 1 MG TAB PO SCH (09:49)
[2017-01-05] MEDS: QUEtiapine FUMARATE 25 MG TAB PO SCH ×2 (09:50→21:57)
--- NOTE | 2017-01-05 11:33 | PD.TTN ---
Present for Treatment Team Treatment Team Staff: Provider, Nurse, Psych Therapist, Occupational Therapist Patient Problems 1. Discharge planning 2. Medication compliance 3. Knowledge deficit 4. Lack of coping skills Progress Toward Goals Provider Input: Dr. Husain patient continues to require stablization and medication monitoring. Nurse Input: OMA Chamberlain, patient is taking medication, compliant and appears to be responding much better; however she needs more time for stablizing prior to d/c. Psych Therapist Input: Counselor will contact patient's family and set up appropriate service to meet d/c needs. Occupational Therapist Input: JULIUS José, Patient seen daily, her progress is fair, does not appear to be ready to return home. Rolanda Smith [facility] Jan 05, 2017 11:33
[2017-01-05 11:42] LABS: AUTOMATED NEUTROPHIL # 2.8 TH/MM3 (1.8-7.7); BASOPHIL # 0.1 TH/MM3 (0-0.2); EOSINOPHIL # 0.2 TH/MM3 (0-0.4); HEMATOCRIT 36.4 % (35.0-46.0); HEMO FLAGS DIFF FINAL; LYMPH % 25.6 % (9.0-44.0); LYMPHOCYTE # 1.5 TH/MM3 (1.0-4.8); MEAN CELL VOLUME 103.2 FL (80.0-100.0); MEAN CORPUSCULAR HEMOGLOBIN 34.3 PG (27.0-34.0); MEAN CORPUSCULAR HGB CONC 33.2 % (32.0-36.0); MONO % 21.5 % (0.0-8.0); NEUT % 48.9 % (16.0-70.0); PLATELET COUNT 156 TH/MM3 (150-450); RED BLOOD COUNT 3.52 MIL/MM3 (4.00-5.30); RED CELL DISTRIBUTION WIDTH 13.2 % (11.6-17.2); WHITE BLOOD COUNT 5.8 TH/MM3 (4.0-11.0)
[2017-01-05 12:05] LABS: BICARBONATE 28.7 MEQ/L (21.0-32.0); MAGNESIUM 1.8 MG/DL (1.5-2.5)
[2017-01-05 14:00] VITALS: BP 115/70; PULSE 93; RESP 17; TEMP 97.8; O2SAT 95
[2017-01-05 17:52] VITALS: BP 103/66; PULSE 94; RESP 17; TEMP 98.2
[2017-01-05 18:08] VITALS: BP 103/66; PULSE 94; RESP 17; TEMP 98.2
[2017-01-05] MEDS: REMOVE OLD NICOTINE PATCH T-DERMAL SCH (21:00)
[2017-01-06] MEDS: hydrOXYzine HCL 25 MG TAB PO PRN (00:36)
[2017-01-06 05:31] VITALS: BP 116/78; PULSE 84; RESP 16; TEMP 97.7; O2SAT 96
[2017-01-06] MEDS ORDERED: TRIL300T PO (07:36)
[2017-01-06] MEDS: SERTRALINE HCL 50 MG TAB PO SCH (09:13)
[2017-01-06] MEDS: FOLIC ACID 1 MG TAB PO SCH (09:13)
[2017-01-06] MEDS: chlordiazePOXIDE 25 MG CAP PO SCH (09:13)
[2017-01-06] MEDS: MAGNESIUM OXIDE 400 MG TAB PO SCH (09:13)
[2017-01-06] MEDS: THIAMINE HCL 100 MG TAB PO SCH (09:13)
[2017-01-06] MEDS: NICOTINE 21 MG/24 HR PATCH T-DERMAL SCH (09:13)
[2017-01-06] MEDS: QUEtiapine FUMARATE 25 MG TAB PO SCH ×2 (09:14→22:11)
[2017-01-06 11:00] VITALS: BP_SYST 117; BP_SYST 85; BP_DIAS 77; BP_DIAS 87; PULSE 77; RESP 18
[2017-01-06] MEDS ORDERED: SODIUM CHLOR 0.9% 1000 ML INJ 1,000 ML IV ONE (11:15)
--- NOTE | 2017-01-06 12:37 | HHI.PYPN ---
Subjective Remarks Patient for follow up, chart reviewed. As per nursing report patient appears to be clear today. Patient found sitting in hospital bed conversing with sitter but able to engage in interview with jingle writer today. Patient appears to have more attention and concentration but continues to have difficulty with memory as patient was reporting having fallen referring to her recent fall 2 days ago as if it occurred last night. Patient states that her current mood lately has been "good", reports sleeping well, eating and drinking fine, reports her mood being "good". Patient continues ambivalent about inpatient rehabilitation program stating that she needs to be home to take care of her pets as well as have access to her office for her current job. Benefits of inpatient versus outpatient was discussed at length and patient continues to consider it. Patient is time denies any SI, HI, AVH or delusions. Patient continues report that she had no intention of a suicide attempt and that she simply had drank too much. Review of Systems Except as stated in HPI: all other systems reviewed are Neg Objective Alert: Yes [place]: Person, Place ([place]), Situation Mood: Calm Affect: Other (slightly constricted) Memory Intact: Comment (not formally assessed) Hallucinations: Other (denies AVH at this time) Delusions: No Delusion Type: Other (no delusions) Suicidal: Ideation (no SI) Homicidal: Ideation (denies) Insight/Judgment Limited insight, fair impulse control and judgment. Labs Labs reviewed. See noted with mild macrocytosis Laboratory Tests Test 01/05/17 10:30 Red Blood Count 3.52 MIL/MM3 (4.00-5.30) Mean Corpuscular Volume 103.2 FL (80.0-100.0) Mean Corpuscular Hemoglobin 34.3 PG (27.0-34.0) Monocytes (%) (Auto) 21.5 % (0.0-8.0) Monocytes # (Auto) 1.2 TH/MM3 (0-0.9) Estimat Glomerular Filtration 81 ML/MIN (>89) Rate Vitals/IOs Vital Signs Date Time Temp Pulse Resp B/P Pulse Ox O2 Delivery O2 Flow Rate FiO2 01/06/17 11:00 77 18 117/77 85/87 01/06/17 05:31 97.7 96 Intake and Output 01/05/17 01/05/17 01/06/17 08:00 16:00 00:00 Intake Total 828 ml 480 ml 600 ml Balance 828 ml 480 ml 600 ml Assessment & Plan Problem List: (1) Major depressive disorder, single episode ICD Code: F32.9 (2) Alcohol withdrawal delirium ICD Code: F10.231 Assessment & Plan Patient at this time continues to be tapered off Librium, and not requiring when necessary Ativan for withdrawal symptoms. Patient continues to be slightly confused, continues to deny this hospitalization as a suicide attempt. Reports mood being good. Librium will continue being tapered off and sertraline increased to 100 mg by mouth daily will continue to be titrated as needed. Monitor medication response and possible adverse drug reactions. Pre- supportive psychotherapy provided. Psychoeducation over rehabilitation program for substance use was discussed. Discharge planning in progress Justification for Cont. Inpt. Patient at risk for decompensation at lower level care Discharge Planning In progress Дмитрий Husain MD Jan 06, 2017 12:37
[2017-01-06 13:24] VITALS: BP_SYST 118; BP_SYST 121; BP_SYST 142; BP_DIAS 76; BP_DIAS 83; BP_DIAS 94; PULSE 77
--- NOTE | 2017-01-06 14:22 | HHI.PR ---
Subjective Remarks The patient was seen ciaio lumite injector. She was eating breakfast. No nausea, vomiting, diarrhea or constipation. Less tremors today. As she feels better than yesterday. Later on the blood pressure was noted low. Patient is asymptomatic at this time. Objective Vitals Vital Signs Date Time Temp Pulse Resp B/P Pulse Ox O2 Delivery O2 Flow Rate FiO2 01/06/17 13:24 77 142/94 118/76 121/83 01/06/17 11:00 77 18 117/77 85/87 01/06/17 05:31 97.7 84 16 116/78 96 01/05/17 18:08 98.2 94 17 103/66 01/05/17 17:52 98.2 94 17 103/66 I/O 01/05/17 01/05/17 01/05/17 01/06/17 01/06/17 01/06/17 06:59 14:59 22:59 06:59 14:59 22:59 Intake Total 828 ml 480 ml 600 ml 240 ml 480 ml Balance 828 ml 480 ml 600 ml 240 ml 480 ml Intake Oral 0 ml 480 ml 600 ml 240 ml 480 ml IV Total 828 ml # Voids 1 3 3 # Bowel Movements 1 1 Result Diagram: 01/05/17 1030 01/05/17 1030 Imaging Last Impressions Head CT 01/04/17 0000 Signed Impressions: Service Date/Time: Wednesday, January 04, 2017 18:26 - CONCLUSION: Normal examination for a patient of this age. No significant change has occurred. Sarkis Amador MD Objective Remarks GENERAL: This is a well-nourished, well-developed patient, in no apparent distress. Sitting up in hospital bed. Daughters at the bedside. SKIN: No rashes, ecchymoses or lesions. Cool and dry. CARDIOVASCULAR: Regular rate and rhythm without murmurs, gallops, or rubs. RESPIRATORY: Clear to auscultation. Breath sounds equal bilaterally. No wheezes , rales, or rhonchi. GASTROINTESTINAL: Abdomen soft, non-tender, nondistended. No hepato-splenomegaly , or palpable masses. No guarding. MUSCULOSKELETAL: Extremities without clubbing, cyanosis, or edema. No joint tenderness, effusion, or edema noted. No calf tenderness. NEUROLOGICAL: Awake and alert. Able to move all extremities. Hands are slightly tremulous. Normal speech. A/P Assessment and Plan 56-year-old female with a past medical history significant for GERD, diverticulosis, alcoholism and a history of intentional overdose 7 years ago who was found unresponsive by her daughter and brought to [facility] ED on . There was also the possibility the patient overdosed on Wellbutrin. Patient is now admitted to the med/psychiatric unit and hospitalist services have been consulted for medical management. Alcoholism Depression History of intentional overdose 7 years ago Management per psychiatric team AMS, on/off Alcohol withdrawal Tachycardia orthostatic Hypotension. Monitor BP closely. Give NS 1L . start maintainance IVF. Consult PT. Encourage PO hydration Continue on metoprolol 12.5 mg twice a day CIWA protocol Patient on Librium taper as ordered by primary team Continue on thiamine and folate supplementation daily Monitor for signs of withdrawal Monitor ammonia level, back to normal Check cbc, bmp Fall 01/04/17. CT head negative ,.Patient symptomatic. She is ambulating. Respiratory failure requiring intubation. Now extubated and sattign well on room air. Monitor respiratory status. Fatty liver with enlargement Discussed with patient importance of alcohol cessation Hypomagnesemia Repletion ordered Follow-up with repeat lab studies in the morning Macrocytosis Related to alcohol use Ongoing tobaccoism Continues to nicotine patch Discussed importance of smoking cessation/counseling GERD PPI Encourage PO intake. DVT prophylaxis Patient is ambulatory and is low risk Thank you for this consultation. We will continue to follow along with you. Discussed with the patient, nurse Charis Fallon MD Jan 06, 2017 14:22
[2017-01-06] MEDS: SODIUM CHLOR 0.9% 1000 ML INJ 1,000 ML IV SCH ×2 (14:30→23:16)
[2017-01-06 18:05] VITALS: BP 134/78; PULSE 76; RESP 16; TEMP 98.5; O2SAT 98
[2017-01-06] MEDS ORDERED: chlordiazePOXIDE 25 MG CAP PO SCH (21:00)
[2017-01-06] MEDS: REMOVE OLD NICOTINE PATCH T-DERMAL SCH (21:00)
[2017-01-07] MEDS: LORazepam 2 MG/ML VIAL IV PUSH PRN (01:29)
[2017-01-07 06:19] VITALS: BP 150/98; PULSE 85; RESP 16; TEMP 96.7; O2SAT 94
[2017-01-07] MEDS: SODIUM CHLOR 0.9% 1000 ML INJ 1,000 ML IV SCH (06:30)
[2017-01-07] MEDS: QUEtiapine FUMARATE 25 MG TAB PO SCH ×2 (08:49→21:00)
[2017-01-07] MEDS: SERTRALINE HCL 50 MG TAB PO SCH (08:49)
[2017-01-07] MEDS: MAGNESIUM OXIDE 400 MG TAB PO SCH (08:49)
[2017-01-07] MEDS: NICOTINE 21 MG/24 HR PATCH T-DERMAL SCH (08:50)
[2017-01-07] MEDS: chlordiazePOXIDE 25 MG CAP PO SCH (08:50)
[2017-01-07] MEDS: THIAMINE HCL 100 MG TAB PO SCH (08:50)
[2017-01-07] MEDS: FOLIC ACID 1 MG TAB PO SCH (08:50)
--- NOTE | 2017-01-07 11:54 | HHI.PR ---
Subjective Remarks In the bed, sleepy but arousable. Patient was noted not sleeping well overnight. She was able to eat breakfast in the morning. She is noted with visual and auditory hallucinations. Fels nauseated, no vomiting. No fever ro chills. No abd pain. No diarrhea. Objective Vitals Vital Signs Date Time Temp Pulse Resp B/P Pulse Ox O2 Delivery O2 Flow Rate FiO2 01/07/17 06:19 96.7 85 16 150/98 94 01/06/17 18:05 98.5 76 16 134/78 98 01/06/17 13:24 77 142/94 118/76 121/83 I/O 01/06/17 01/06/17 01/06/17 01/07/17 01/07/17 01/07/17 07:00 15:00 23:00 07:00 15:00 23:00 Intake Total 240 ml 1680 ml 480 ml 2840 ml Balance 240 ml 1680 ml 480 ml 2840 ml Intake Oral 240 ml 1680 ml 480 ml 240 ml IV Total 2600 ml # Voids 3 4 # Bowel Movements 1 Result Diagram: 01/05/17 1030 01/05/17 1030 Imaging Last Impressions Head CT 01/04/17 0000 Signed Impressions: Service Date/Time: Wednesday, January 04, 2017 18:26 - CONCLUSION: Normal examination for a patient of this age. No significant change has occurred. Sarkis Amador MD Objective Remarks GENERAL: This is a well-nourished, well-developed patient, in no apparent distress. Sitting up in hospital bed. Daughters at the bedside. SKIN: No rashes, ecchymoses or lesions. Cool and dry. CARDIOVASCULAR: Regular rate and rhythm without murmurs, gallops, or rubs. RESPIRATORY: Clear to auscultation. Breath sounds equal bilaterally. No wheezes , rales, or rhonchi. GASTROINTESTINAL: Abdomen soft, non-tender, nondistended. No hepato-splenomegaly , or palpable masses. No guarding. MUSCULOSKELETAL: Extremities without clubbing, cyanosis, or edema. No joint tenderness, effusion, or edema noted. No calf tenderness. NEUROLOGICAL: Awake and alert. Able to move all extremities. Hands are slightly tremulous. Normal speech. A/P Assessment and Plan 56-year-old female with a past medical history significant for GERD, diverticulosis, alcoholism and a history of intentional overdose 7 years ago who was found unresponsive by her daughter and brought to [facility] ED on . There was also the possibility the patient overdosed on Wellbutrin. Patient is now admitted to the med/psychiatric unit and hospitalist services have been consulted for medical management. Alcoholism Depression History of intentional overdose 7 years ago Management per psychiatric team AMS, on/off Alcohol withdrawal Tachycardia orthostatic Hypotension. Monitor BP closely. Received NS 1L . DC IVF as BP is elevated now. Consult PT. Encourage PO hydration DC metoprolol 12.5 mg twice a day as BP was low. CIWA protocol Patient on Librium taper as ordered by primary team Continue on thiamine and folate supplementation daily Monitor for signs of withdrawal Monitor ammonia level, back to normal Check cbc, bmp Fall 01/04/17. CT head negative ,.Patient symptomatic. She is ambulating. Respiratory failure requiring intubation. Now extubated and sattign well on room air. Monitor respiratory status. Fatty liver with enlargement Discussed with patient importance of alcohol cessation Hypomagnesemia Repletion ordered Follow-up with repeat lab studies in the morning Macrocytosis Related to alcohol use Ongoing tobaccoism Continues to nicotine patch Discussed importance of smoking cessation/counseling GERD PPI Encourage PO intake. DVT prophylaxis Patient is ambulatory and is low risk Thank you for this consultation. We will continue to follow along with you. Discussed with the patient, nurse Charis Fallon MD Jan 07, 2017 11:54
--- NOTE | 2017-01-07 16:04 | HHI.PYPN ---
Subjective Remarks Patient is for follow up, chart reviewed. After discussion with nurse, patient had received IM medications for agitation last evening around 11:45 PM, and noted to have been confused at that time which she required to point restraints. Patient reported having slept after medical further incidents. CIWA score earlier this morning (06:14am) was 6. Patient found initially asleep this morning was unable to wake up for interview but later was visited and was able to engage in interview. Patient states that she slept well last night but had gone to sleep late due to playing cards with her sister. Patient doesn't recall episodes of agitation last evening but states that she was upset yesterday planning to see her parents. Patient reports that she had been visited by her sister and her daughter yesterday. Patient noted to be tearful as it was recommended that she required further observation and management which risks of withdrawal were discussed which she acknowledged and agreed. Patient reports her mood as being "good" denies SI or HI AVH or delusions. Nurse reported that patient was having suprapubic tenderness and had not voided for some time. Review of Systems Except as stated in HPI: all other systems reviewed are Neg Objective Alert: Yes [place]: Person, Place ([place]) Mood: Calm Affect: Other (slightly constricted) Memory Intact: Comment (not formally assessed) Hallucinations: Other (denies AVH at this time) Delusions: No Delusion Type: Other (no delusions) Suicidal: Ideation (no SI) Homicidal: Ideation (denies) Insight/Judgment Impaired insight, fair impulse control and judgment Remarks Patient appears older than stated age, in hospital [facility], initially noted to be asleep later was awake and able to engage in interview and found to be calm and cooperative. Fair eye contact, speech slow rate, tone and prosody normal. Language fluid and spontaneous.Thought process: [place], thought content denies SI, HI, AVH or delusions at time of interview. Vitals/IOs Vital Signs Date Time Temp Pulse Resp B/P Pulse Ox O2 Delivery O2 Flow Rate FiO2 01/07/17 06:19 96.7 85 16 150/98 94 Intake and Output 01/06/17 01/06/17 01/07/17 08:00 16:00 00:00 Intake Total 240 ml 1680 ml 720 ml Balance 240 ml 1680 ml 720 ml Assessment & Plan Problem List: (1) Major depressive disorder, single episode ICD Code: F32.9 (2) Alcohol withdrawal delirium ICD Code: F10.231 Assessment & Plan Patient continues to have episodes of confusion, unable to recall events such as agitation episode last evening. Patient will continue to require further observation for stabilization. Patient will continue to require Librium taper to avoid withdrawal. Patient to remain on one-to-one observations for safety. Continue sertraline 50 mg by mouth daily for depression. Repeat labs in the a.m. ordered. UA ordered for today. Continue CIWA protocol. Seizure precautions, fall precautions. Discharge planning in progress Justification for Cont. Inpt. Patient at risk for further decompensation at lower level of care Discharge Planning In progress Problem Qualifiers (1) Major depressive disorder, single episode: Дмитрий Husain MD Jan 07, 2017 16:04
[2017-01-07 18:18] VITALS: BP 133/85; PULSE 85; RESP 18; TEMP 96.7; O2SAT 98
[2017-01-07] MEDS: REMOVE OLD NICOTINE PATCH T-DERMAL SCH (21:00)
[2017-01-07] MEDS ORDERED: chlordiazePOXIDE 25 MG CAP PO SCH (21:00)
[2017-01-08 04:57] VITALS: BP 134/84; PULSE 72; RESP 16; TEMP 97.7; O2SAT 96
[2017-01-08] MEDS: MAGNESIUM OXIDE 400 MG TAB PO SCH (08:07)
[2017-01-08] MEDS: FOLIC ACID 1 MG TAB PO SCH (08:08)
[2017-01-08] MEDS: QUEtiapine FUMARATE 25 MG TAB PO SCH ×2 (08:08→21:00)
[2017-01-08] MEDS: NICOTINE 21 MG/24 HR PATCH T-DERMAL SCH (08:08)
[2017-01-08] MEDS: chlordiazePOXIDE 25 MG CAP PO SCH (08:08)
[2017-01-08] MEDS: THIAMINE HCL 100 MG TAB PO SCH (08:08)
[2017-01-08] MEDS: SERTRALINE HCL 50 MG TAB PO SCH (08:08)
[2017-01-08 08:50] LABS: AUTOMATED NEUTROPHIL # 4.2 TH/MM3 (1.8-7.7); BASOPHIL # 0.1 TH/MM3 (0-0.2); BASOPHIL % 1.4 % (0.0-2.0); EOSINOPHIL # 0.3 TH/MM3 (0-0.4); EOSINOPHIL % 4.1 % (0.0-4.0); HEMATOCRIT 37.1 % (35.0-46.0); HEMO FLAGS DIFF FINAL; LYMPH % 22.8 % (9.0-44.0); LYMPHOCYTE # 1.6 TH/MM3 (1.0-4.8); MEAN CELL VOLUME 102.6 FL (80.0-100.0); MEAN CORPUSCULAR HEMOGLOBIN 34.1 PG (27.0-34.0); MEAN CORPUSCULAR HGB CONC 33.3 % (32.0-36.0); MONO % 11.6 % (0.0-8.0); NEUT % 60.1 % (16.0-70.0); PLATELET COUNT 237 TH/MM3 (150-450); RED BLOOD COUNT 3.62 MIL/MM3 (4.00-5.30); RED CELL DISTRIBUTION WIDTH 12.8 % (11.6-17.2)
[2017-01-08 09:03] LABS: BICARBONATE 27.4 MEQ/L (21.0-32.0); POTASSIUM 3.7 MEQ/L (3.5-5.1)
[2017-01-08 09:04] LABS: INDIRECT BILIRUBIN 0.2 MG/DL (0.0-0.8); TOTAL BILIRUBIN ADULT 0.3 MG/DL (0.2-1.0)
[2017-01-08 09:27] LABS: BLOOD, URINE NEG (NEG); COMMENT (UR) CULT NOT INDICATED; CULTURE IF INDICATED CULT NOT INDICATED; GLUCOSE,URINE NEG (NEG); KETONE, URINE NEG (NEG); NITRITE,URINE NEG (NEG); PH, URINE 6.5 (5.0-8.5); URINE COLOR LIGHT-YELLOW (YELLW/STRAW)
--- NOTE | 2017-01-08 10:02 | HHI.PYPN ---
Subjective Remarks Patient seen for follow up, chart reviewed. After discussion with nurse, patient last evening slept well last night without incident , noted to be more coherent and alert and oriented to person year and place. Patient found sitting on hospital bed, in casual clothing, calm and cooperative with interview. Patient noted to be slightly lethargic and states feeling this way as well. Patient alert and oriented to date to place stating to the hospital but was confusing which hospital, to person. Patient states they visited by sister and [id number] which she was happy and currently states feeling content as she is getting treatment here in the hospital but feeling sad that she misses her pets. Discussion about rehabilitation program for substance use was provided a great links patient is continuing to considering the same. Patient states that this time denies SI, HI, AVH or delusions. Review of Systems Except as stated in HPI: all other systems reviewed are Neg Objective Alert: Yes [place]: Person, Place (hospital but confused with [facility] hospital), Date Mood: Calm Affect: Other (more reactive) Memory Intact: Comment (not formally assessed) Hallucinations: Other (denies AVH at this time) Delusions: No Delusion Type: Other (no delusions) Suicidal: Ideation (no SI) Homicidal: Ideation (denies) Insight/Judgment Improve insight, fair post control, limited judgment. Labs Labs reviewed. CBC continues to show macrocytosis. CMP showed slightly low albumin. Urinalysis pending. Test 01/08/17 08:02 White Blood Count 7.0 TH/MM3 Red Blood Count 3.62 MIL/MM3 Hemoglobin 12.3 GM/DL Hematocrit 37.1 % Mean Corpuscular Volume 102.6 FL Mean Corpuscular Hemoglobin 34.1 PG Mean Corpuscular Hemoglobin 33.3 % Concent Red Cell Distribution Width 12.8 % Platelet Count 237 TH/MM3 Mean Platelet Volume 8.6 FL Neutrophils (%) (Auto) 60.1 % Lymphocytes (%) (Auto) 22.8 % Monocytes (%) (Auto) 11.6 % Eosinophils (%) (Auto) 4.1 % Basophils (%) (Auto) 1.4 % Neutrophils # (Auto) 4.2 TH/MM3 Lymphocytes # (Auto) 1.6 TH/MM3 Monocytes # (Auto) 0.8 TH/MM3 Eosinophils # (Auto) 0.3 TH/MM3 Basophils # (Auto) 0.1 TH/MM3 CBC Comment DIFF FINAL Differential Comment Sodium Level 140 MEQ/L Potassium Level 3.7 MEQ/L Chloride Level 105 MEQ/L Carbon Dioxide Level 27.4 MEQ/L Anion Gap 8 MEQ/L Blood Urea Nitrogen 12 MG/DL Creatinine 0.79 MG/DL Estimat Glomerular Filtration 76 ML/MIN Rate Random Glucose 77 MG/DL Calcium Level 9.0 MG/DL Total Bilirubin 0.3 MG/DL Direct Bilirubin 0.1 MG/DL Indirect Bilirubin 0.2 MG/DL Aspartate Amino Transf 27 U/L (AST/SGOT) Alanine Aminotransferase 45 U/L (ALT/SGPT) Alkaline Phosphatase 78 U/L Total Protein 7.2 GM/DL Albumin 3.2 GM/DL Vitals/IOs Vital Signs Date Time Temp Pulse Resp B/P Pulse Ox O2 Delivery O2 Flow Rate FiO2 01/08/17 04:57 97.7 72 16 134/84 96 Intake and Output 01/07/17 01/07/17 01/08/17 08:00 16:00 00:00 Intake Total 2600 ml 780 ml 1440 ml Balance 2600 ml 780 ml 1440 ml Assessment & Plan Problem List: (1) Major depressive disorder, single episode ICD Code: F32.9 (2) Alcohol withdrawal delirium ICD Code: F10.231 Assessment & Plan Patient at this time continues to be tapered off Librium for alcohol withdrawal. Patient noted to be less confused today been noted to be with improved mood but continues to have slight unsteady gait which patient was encouraged to let staff know if she was going to move out of bed. Possibility of inpatient rehabilitation program for substance use was discussed with patient at length and will continue to encourage closer to discharge. Everything will continue to be down titrated. Continue Sertraline 50 mg by mouth daily and quetiapine 37.5 by mouth twice a day.. Continue to monitor medication response adverse drug reactions. Brief supportive psychotherapy provided. Discharge planning in progress Justification for Cont. Inpt. Patient risk for further decompensation if it lower levels of care Discharge Planning In progress Problem Qualifiers (1) Major depressive disorder, single episode: Дмитрий Husain MD Jan 08, 2017 10:02
--- NOTE | 2017-01-08 10:09 | HHI.PR ---
Subjective Remarks In the chair, she is awake and alert, no much tremors. She is eating well. No n/ v/d/c. Able to ambulate. No fever or chills. No cough. Objective Vitals Vital Signs Date Time Temp Pulse Resp B/P Pulse Ox O2 Delivery O2 Flow Rate FiO2 01/08/17 04:57 97.7 72 16 134/84 96 01/07/17 18:18 96.7 85 18 133/85 98 I/O 01/07/17 01/07/17 01/07/17 01/08/17 01/08/17 01/08/17 06:59 14:59 22:59 06:59 14:59 22:59 Intake Total 2840 ml 780 ml 1440 ml 0 ml 240 ml Balance 2840 ml 780 ml 1440 ml 0 ml 240 ml Intake Oral 240 ml 780 ml 1440 ml 0 ml 240 ml IV Total 2600 ml # Voids 4 2 1 # Bowel Movements 0 0 Result Diagram: 01/08/17 0802 01/08/17 0802 Imaging Last Impressions Head CT 01/04/17 0000 Signed Impressions: Service Date/Time: Wednesday, January 04, 2017 18:26 - CONCLUSION: Normal examination for a patient of this age. No significant change has occurred. Sarkis Amador MD Objective Remarks GENERAL: This is a well-nourished, well-developed patient, in no apparent distress. Sitting up in hospital bed. Daughters at the bedside. SKIN: No rashes, ecchymoses or lesions. Cool and dry. CARDIOVASCULAR: Regular rate and rhythm without murmurs, gallops, or rubs. RESPIRATORY: Clear to auscultation. Breath sounds equal bilaterally. No wheezes , rales, or rhonchi. GASTROINTESTINAL: Abdomen soft, non-tender, nondistended. No hepato-splenomegaly , or palpable masses. No guarding. MUSCULOSKELETAL: Extremities without clubbing, cyanosis, or edema. No joint tenderness, effusion, or edema noted. No calf tenderness. NEUROLOGICAL: Awake and alert. Able to move all extremities. Hands are slightly tremulous. Normal speech. A/P Assessment and Plan 56-year-old female with a past medical history significant for GERD, diverticulosis, alcoholism and a history of intentional overdose 7 years ago who was found unresponsive by her daughter and brought to [facility] ED on . There was also the possibility the patient overdosed on Wellbutrin. Patient is now admitted to the med/psychiatric unit and hospitalist services have been consulted for medical management. Alcoholism Depression History of intentional overdose 7 years ago Management per psychiatric team Acute encephalopathy relatec to EtOH withdrawal/ AMS, Resolving Alcohol withdrawal Tachycardia Orthostatic Hypotension. Monitor BP closely. Received NS 1L . DC IVF as BP is elevated now. Consult PT. Encourage PO hydration DC metoprolol 12.5 mg twice a day as BP was low. CIWA protocol Patient on Librium taper as ordered by primary team Continue on thiamine and folate supplementation daily Monitor for signs of withdrawal Monitor ammonia level, back to normal Check cbc, bmp Fall 01/04/17. CT head negative ,.Patient symptomatic. She is ambulating. Respiratory failure requiring intubation. Now extubated and sattign well on room air. Monitor respiratory status. Fatty liver with enlargement Discussed with patient importance of alcohol cessation Hypomagnesemia Repletion ordered Follow-up with repeat lab studies in the morning Macrocytosis Related to alcohol use Ongoing tobaccoism Continues to nicotine patch Discussed importance of smoking cessation/counseling GERD PPI Encourage PO intake. DVT prophylaxis Patient is ambulatory and is low risk Thank you for this consultation. We will continue to follow along with you. Discussed with the patient, nurse Charis Fallon MD Jan 08, 2017 10:09
[2017-01-08 18:00] VITALS: BP 135/96; PULSE 86; RESP 16; TEMP 98.3; O2SAT 98
[2017-01-08] MEDS: REMOVE OLD NICOTINE PATCH T-DERMAL SCH (21:00)
[2017-01-09 05:11] VITALS: BP 127/63; PULSE 79; RESP 16; TEMP 97.4; O2SAT 94
[2017-01-09] MEDS: THIAMINE HCL 100 MG TAB PO SCH (08:50)
[2017-01-09] MEDS: NICOTINE 21 MG/24 HR PATCH T-DERMAL SCH (08:50)
[2017-01-09] MEDS: FOLIC ACID 1 MG TAB PO SCH (08:50)
[2017-01-09] MEDS: QUEtiapine FUMARATE 25 MG TAB PO SCH ×2 (08:50→22:29)
[2017-01-09] MEDS: SERTRALINE HCL 50 MG TAB PO SCH (08:50)
[2017-01-09] MEDS: MAGNESIUM OXIDE 400 MG TAB PO SCH (08:50)
--- NOTE | 2017-01-09 15:32 | HHI.PYPN ---
Subjective Remarks Patient was seen today for psychiatric reevaluation along with nurse in charge, patient is found awake, calm and cooperative. She endorses improved mood, improvement and positive response to psychotropics. She reports that even though at times she feels depressed, he has the motivation to continue her psychiatric medications, to continue sobriety and with the plan to be engaging in some kind of rehabilitation. Patient mood is 6/10, compared with 5/10 yesterday. At the moment she denies suicidal or homicidal ideation, she denies visual and auditory hallucinations. Patient reports good sleep, improve appetite and energy. She is oriented 3, no attention deficit. Thought positive symptoms of withdrawal present or reported. Review of Systems Other No somatic complaints Objective Alert: Yes [place]: Person, Place, Date Mood: Calm Affect: Appropriate Memory Intact: Comment (not formally assessed) Hallucinations: Other (denies AVH at this time) Delusions: No Delusion Type: Other (no delusions) Suicidal: Ideation (no SI) Homicidal: Ideation (denies) Insight/Judgment Improved Vitals/IOs Vital Signs Date Time Temp Pulse Resp B/P Pulse Ox O2 Delivery O2 Flow Rate FiO2 01/09/17 05:11 97.4 79 16 127/63 94 Intake and Output 01/08/17 01/08/17 01/08/17 07:59 15:59 23:59 Intake Total 240 ml 840 ml Balance 240 ml 840 ml Assessment & Plan Problem List: (1) Major depressive disorder, single episode ICD Code: F32.9 (2) Alcohol withdrawal delirium Assessment & Plan: Patient doesn't present symptoms of withdrawal at this moment, we will discontinue completely Librium commitments. Extensive support, motivation and psychoeducation provided. ICD Code: F10.231 Assessment & Plan Estimated LOS: days Justification for Cont. Inpt. Patient will continue psychiatric hospitalization for stabilization of mood symptoms. Problem Qualifiers (1) Major depressive disorder, single episode: Andres De Oliveira MD Jan 09, 2017 15:32
--- NOTE | 2017-01-09 16:08 | HHI.PR ---
Subjective Remarks In bed, appears more alert today. Family at bedside. Patient says she feels much better no much tremors, no nausea or vomiting, no diarrhea or constipation. Eating much better. No fever or chills. Objective Vitals Vital Signs Date Time Temp Pulse Resp B/P Pulse Ox O2 Delivery O2 Flow Rate FiO2 01/09/17 05:11 97.4 79 16 127/63 94 01/08/17 18:00 98.3 86 16 135/96 98 I/O 01/08/17 01/08/17 01/08/17 01/09/17 01/09/17 01/09/17 07:00 15:00 23:00 07:00 15:00 23:00 Intake Total 0 ml 240 ml 840 ml 240 ml 360 ml Balance 0 ml 240 ml 840 ml 240 ml 360 ml Intake Oral 0 ml 240 ml 840 ml 240 ml 360 ml # Voids 1 1 1 # Bowel Movements 0 Result Diagram: 01/08/17 0802 01/08/17 0802 Imaging Last Impressions Head CT 01/04/17 0000 Signed Impressions: Service Date/Time: Wednesday, January 04, 2017 18:26 - CONCLUSION: Normal examination for a patient of this age. No significant change has occurred. Sarkis Amador MD Objective Remarks GENERAL: This is a well-nourished, well-developed patient, in no apparent distress. Sitting up in hospital bed. Daughters at the bedside. SKIN: No rashes, ecchymoses or lesions. Cool and dry. CARDIOVASCULAR: Regular rate and rhythm without murmurs, gallops, or rubs. RESPIRATORY: Clear to auscultation. Breath sounds equal bilaterally. No wheezes , rales, or rhonchi. GASTROINTESTINAL: Abdomen soft, non-tender, nondistended. No hepato-splenomegaly , or palpable masses. No guarding. MUSCULOSKELETAL: Extremities without clubbing, cyanosis, or edema. No joint tenderness, effusion, or edema noted. No calf tenderness. NEUROLOGICAL: Awake and alert. Able to move all extremities. Hands are slightly tremulous. Normal speech. A/P Assessment and Plan 56-year-old female with a past medical history significant for GERD, diverticulosis, alcoholism and a history of intentional overdose 7 years ago who was found unresponsive by her daughter and brought to [facility] ED on . There was also the possibility the patient overdosed on Wellbutrin. Patient is now admitted to the med/psychiatric unit and hospitalist services have been consulted for medical management. Alcoholism Depression History of intentional overdose 7 years ago Management per psychiatric team Acute encephalopathy relatec to EtOH withdrawal/ AMS, Resolving Alcohol withdrawal Tachycardia Orthostatic Hypotension. Monitor BP closely. Received NS 1L . DC IVF as BP is elevated now. Consult PT. Encourage PO hydration DC metoprolol 12.5 mg twice a day as BP was low. CIWA protocol Patient on Librium taper as ordered by primary team Continue on thiamine and folate supplementation daily Monitor for signs of withdrawal Monitor ammonia level, back to normal Check cbc, bmp Fall 01/04/17. CT head negative ,.Patient symptomatic. She is ambulating. Respiratory failure requiring intubation. Now extubated and sattign well on room air. Monitor respiratory status. Fatty liver with enlargement Discussed with patient importance of alcohol cessation Hypomagnesemia Repletion ordered Follow-up with repeat lab studies in the morning Macrocytosis Related to alcohol use Ongoing tobaccoism Continues to nicotine patch Discussed importance of smoking cessation/counseling GERD PPI Encourage PO intake. DVT prophylaxis Patient is ambulatory and is low risk Thank you for this consultation. We will continue to follow along with you. Discussed with the patient, nurse, family at bedside Charis Fallon MD Jan 09, 2017 16:08
[2017-01-09 18:00] VITALS: BP 119/78; PULSE 78; RESP 16; TEMP 97.6; O2SAT 95
[2017-01-09] MEDS: REMOVE OLD NICOTINE PATCH T-DERMAL SCH (21:00)
[2017-01-10 04:42] VITALS: BP 119/76; PULSE 71; RESP 14; TEMP 97; O2SAT 93
[2017-01-10] MEDS: NICOTINE 21 MG/24 HR PATCH T-DERMAL SCH (08:39)
[2017-01-10] MEDS: MAGNESIUM OXIDE 400 MG TAB PO SCH (08:40)
[2017-01-10] MEDS: QUEtiapine FUMARATE 25 MG TAB PO SCH ×2 (08:40→21:18)
[2017-01-10] MEDS: THIAMINE HCL 100 MG TAB PO SCH (08:40)
[2017-01-10] MEDS: SERTRALINE HCL 50 MG TAB PO SCH (08:40)
[2017-01-10] MEDS: FOLIC ACID 1 MG TAB PO SCH (08:40)
--- NOTE | 2017-01-10 13:28 | HHI.PR ---
Subjective Remarks Denies hallucinations tremors no diarrhea denies cp/sob had a BM this morning - previously stated was constipated Objective Vitals Vital Signs Date Time Temp Pulse Resp B/P Pulse Ox O2 Delivery O2 Flow Rate FiO2 01/10/17 04:42 97.0 71 14 119/76 93 01/09/17 18:00 97.6 78 16 119/78 95 I/O 01/09/17 01/09/17 01/09/17 01/10/17 01/10/17 01/10/17 07:00 15:00 23:00 07:00 15:00 23:00 Intake Total 240 ml 360 ml 1080 ml 1440 ml Balance 240 ml 360 ml 1080 ml 1440 ml Intake Oral 240 ml 360 ml 1080 ml 1440 ml # Voids 1 2 1 2 Result Diagram: 01/08/17 0802 01/08/17 0802 Imaging Last Impressions Head CT 01/04/17 0000 Signed Impressions: Service Date/Time: Wednesday, January 04, 2017 18:26 - CONCLUSION: Normal examination for a patient of this age. No significant change has occurred. Sarkis Amador MD Objective Remarks AAOx3 nad PERRLA Clear lungs BL S1S2 RRR abdomen soft, NT, ND Procedures none Medications and IVs Current Medications Medications (Trade) Dose Ordered Sig/Yasmine Route Start Time Stop Time Status Last Admin (Tylenol) 650 mg Q4H PRN PO 12/31/16 22:15 (Milk Of Magnesia Liq) 30 ml DAILY PRN PO 12/31/16 22:15 (Mag-Al Plus Susp Liq) 30 ml Q6H PRN PO 12/31/16 22:15 (Habitrol 21 Mg Patch.24 Hr) 1 patch DAILY T-DERMAL 01/01/17 09:00 01/10/17 08:39 Miscellaneous Information 1 HS T-DERMAL 01/01/17 21:00 01/09/17 21:00 (Romazicon Inj) 0.2 mg Q1M PRN IV PUSH 01/01/17 08:45 (Ativan) 1 mg Q4H PRN PO 01/01/17 08:45 01/02/17 16:37 (Ativan Inj) 1 mg Q4H PRN IV PUSH 01/01/17 08:45 (Ativan) 2 mg Q2H PRN PO 01/01/17 08:45 01/02/17 23:08 (Ativan Inj) 2 mg Q2H PRN IV PUSH 01/01/17 08:45 01/03/17 03:26 (Ativan Inj) 2 mg Q1H PRN IV PUSH 01/01/17 08:45 01/03/17 01:22 (Ativan Inj) 2 mg Q15M PRN IV PUSH 01/01/17 08:45 01/07/17 01:29 (Vitamin B1) 100 mg DAILY PO 01/01/17 09:00 01/10/17 08:40 (Folate) 1 mg DAILY PO 01/01/17 09:00 01/10/17 08:40 (Atarax) 25 mg Q6H PRN PO 01/01/17 09:00 01/06/17 00:36 (Mag-Ox) 400 mg DAILY PO 01/01/17 17:30 01/10/17 08:40 (Pill Splitter) 1 ea UNSCH PRN OTHER 01/01/17 17:45 (SEROquel) 37.5 mg BID PO 01/02/17 21:00 01/10/17 08:40 (Catapres) 0.1 mg Q6H PRN PO 01/02/17 12:30 01/03/17 16:05 (Geodon Inj) 10 mg DAILY PRN IM 01/03/17 18:00 01/07/17 00:12 (Zoloft) 50 mg DAILY PO 01/06/17 09:00 01/10/17 08:40 A/P Problem List: (1) Major depressive disorder, single episode ICD Code: F32.9 Status: Acute Plan: Management as per psychiatric team. Patient is currently on Zoloft, Geodon as needed for agitation, Seroquel. (2) Toxic encephalopathy ICD Code: G92 Status: Resolved Plan: Likely secondary to alcohol intoxication and alcohol withdrawal. Now resolved. (3) Orthostatic hypotension ICD Code: I95.1 Status: Acute Plan: Patient was on metoprolol which was discontinued. BP is more stable. I will order a repeat orthostatic blood pressure. (4) Alcohol intoxication ICD Code: F10.929 Status: Resolved Plan: Patient presented with her alcohol level of 295. (5) Alcohol withdrawal delirium ICD Code: F10.231 Status: Resolved Plan: Placed on CIWA protocol and Librium. Librium was tapered and discontinued as per primary team. (6) Fatty liver ICD Code: K76.0 Status: Acute Plan: Liver ultrasound obtained on 12/30/16 showed fatty liver with mild enlargement. No gallstones or biliary ductal dilatation. LFTs are within normal range. Advised alcohol cessation. (7) Tobacco abuse ICD Code: Z72.0 Status: Acute Plan: Advises smoking cessation. Continue nicotine patch. (8) GERD (gastroesophageal reflux disease) ICD Code: K21.9 Status: Acute Plan: Continue PPI. (9) Macrocytosis ICD Code: D75.89 Status: Acute Plan: Likely related to alcohol use and liver disease. Assessment and Plan GI prophylaxis: Start PPI. DVT prophylaxis: SCDs Discharge Planning The patient is medically clear for discharge. Discharge as per primary. Problem Qualifiers (1) Major depressive disorder, single episode: Billy Harrington MD Jan 10, 2017 13:28
--- NOTE | 2017-01-10 13:56 | HHI.PYPN ---
Subjective Remarks Patient is to follow up with nurse, chart review. After discussion with nursing staff. Patient had been visited be alert and oriented and was clear. Patient found lying in hospital bed initially was able to wake up engage in interview. Patient reports she had a good weekend, continue contemplating a rehabilitation program postdischarge feeling anxious about not being able to continue to work and missing her pet. Patient is more hopeful today denies feeling depressed, denies suicidal ideations. She reports having visited by her daughter over the weekend. Patient states that she loves her daughters, her life and states that she is looking forward to doing better. Patient alert and oriented x3, is hopeful and looking forward to discharge. Patient agrees to rehabilitation program but is hesitant on it being inpatient. Patient at this time denies SI, HI, AVH or delusions. Review of Systems Except as stated in HPI: all other systems reviewed are Neg Objective Alert: Yes [place]: Person, Place, Date Mood: Calm Affect: Appropriate Memory Intact: Comment (not formally assessed) Hallucinations: Other (denies AVH at this time) Delusions: No Delusion Type: Other (no delusions) Suicidal: Ideation (no SI) Homicidal: Ideation (denies) Insight/Judgment Improving insight, fair impulse control and judgment Remarks Patient appears older than stated age, in casual clothing, lying in hospital bed , calm and cooperative in interview. Speech slightly slow rate, normal tone and prosody. Fair eye contact. Thought process linear and organized, thought content denies SI or HI or AVH or delusions. Vitals/IOs Vital Signs Date Time Temp Pulse Resp B/P Pulse Ox O2 Delivery O2 Flow Rate FiO2 01/10/17 04:42 97.0 71 14 119/76 93 Intake and Output 01/09/17 01/09/17 01/10/17 08:00 16:00 00:00 Intake Total 600 ml 1080 ml Balance 600 ml 1080 ml Assessment & Plan Problem List: (1) Major depressive disorder, single episode ICD Code: F32.9 (2) Alcohol withdrawal delirium ICD Code: F10.231 Assessment & Plan Patient at time noted to have improved mood, future oriented, denies any suicidal ideations. Patient completed a recent taper. She is considering rehabilitation program postdischarge inpatient versus outpatient. Patient continues to respond well to current treatment. Meeting with daughter later today to discuss possibility of inpatient rehabilitation program vs. outpatient. Discharge planning in progress. Justification for Cont. Inpt. At risk for further decompensation at lower level of care at this time. Discharge Planning In progress Problem Qualifiers (1) Major depressive disorder, single episode: Дмитрий Husain MD Jan 10, 2017 13:56
[2017-01-10 18:20] VITALS: BP 117/76; PULSE 83; RESP 16; TEMP 99.3; O2SAT 96
[2017-01-10] MEDS: REMOVE OLD NICOTINE PATCH T-DERMAL SCH (21:00)
[2017-01-11] MEDS: hydrOXYzine HCL 25 MG TAB PO PRN (00:10)
[2017-01-11 05:16] VITALS: BP 115/65; PULSE 76; RESP 16; TEMP 97.6; O2SAT 97
[2017-01-11] MEDS: FOLIC ACID 1 MG TAB PO SCH (08:45)
[2017-01-11] MEDS: QUEtiapine FUMARATE 25 MG TAB PO SCH (08:45)
[2017-01-11] MEDS: NICOTINE 21 MG/24 HR PATCH T-DERMAL SCH (08:45)
[2017-01-11] MEDS: SERTRALINE HCL 50 MG TAB PO SCH (08:45)
[2017-01-11] MEDS: MAGNESIUM OXIDE 400 MG TAB PO SCH (08:45)
[2017-01-11] MEDS: THIAMINE HCL 100 MG TAB PO SCH (08:45)
[2017-01-11] MEDS ORDERED: PANTOPRAZOLE SOD 20 MG DELAYED RELEASE TAB PO SCH (09:00)
[2017-01-11] MEDS ORDERED: ZOLO50TA PO (10:02)
[2017-01-11] MEDS ORDERED: FOLI1TAB6 PO (10:02)
[2017-01-11] MEDS ORDERED: QUET1TAB7 PO (10:02)
[2017-01-11] MEDS ORDERED: GNP100TA3 PO (10:02)
[2017-01-11] MEDS ORDERED: PANT20 PO (10:02)
[2017-01-11] MEDS ORDERED: MAGN400T3 PO (10:03)
--- NOTE | 2017-01-11 15:58 | HHI.DS ---
Psychiatry Discharge Summary Inpatient Psychiatric care?: Yes Advance Directive: No Reason Not Provided: not available Mental Health AdvanceDirective: No Health Care Proxy: No Admission Admission Date Dec 31, 2016 at 19:00 Admission Diagnosis: (1) Major depressive disorder, single episode ICD Code: F32.9 (2) Alcohol withdrawal delirium ICD Code: F10.231 Brief History Patient upon presentation in the ED patient was found with a BAL 295 and was presenting with signs and symptoms are all withdrawal delirium. Patient with history of previous blackouts and daily alcohol use. Tobacco Use In Past 30 Days: Refused To Answer Alcohol Use: 4 or More Times Per Week Hospital Course Patient is a 56-year-old woman, unclear past psychiatric history, alcohol use disorder, no prior psychiatric authorizations, prior suicide attempts, history of blackouts related to alcohol use, who was seen on the inpatient medical unit by Dr. Flores which transferred to inpatient psychiatric unit was recommended due to recent presentation with altered mental status on 12/29, intoxicated with alcohol (BAL 295) with concern for possible Wellbutrin overdose. Patient upon admission to medical/psychiatric unit continued to experience alcohol withdrawal delirium which patient was managed on Librium taper along with quetiapine 37.5 by mouth twice a day. Patient did have 1 episode of agitation which required Geodon intramuscular injection for agitation likely secondary to withdrawal delirium. Patient thereafter had no other episodes of agitation, was started on sertraline for the depressive symptoms which was titrated up to 50 mg by mouth daily. Patient continued to improve less signs of alcohol withdrawal a total severity was completed. Patient continued to report improved mood denying any suicidal ideations, contemplating rehabilitation program for alcohol use which after meeting with daughter had agreed to outpatient follow-up along with outpatient rehabilitation. Patient upon discharge was noted to be in good spirits, states feeling good, looking forward to returning to her home and family along with motivation to continue outpatient treatment. Importance of adherence to outpatient [place] program for success sobriety was discussed at length with patient, it was also recommended the patient continue outpatient mental health services and comply with outpatient follow-up. Patient to continue sertraline 50 mg by mouth daily and quetiapine 37.5 by mouth twice a day. Patient probably was supportive psychotherapy. Patient advised to call 911 or return to ED case of an emergency. Patient and family agree to plan. Results Blood Pressure 115 / 65 Vital Signs Date Time Temp Pulse Resp B/P Pulse Ox O2 Delivery O2 Flow Rate FiO2 01/11/17 05:16 97.6 76 16 115/65 97 Negative RPR and HIV UA negative CMP: low GFR and albumin, rest wnl CBC: macrocytosis Summary of Procedures None Imaging Last Impressions Head CT 01/04/17 0000 Signed Impressions: Service Date/Time: Wednesday, January 04, 2017 18:26 - CONCLUSION: Normal examination for a patient of this age. No significant change has occurred. Sarkis Amador MD Pending results at discharge: No Medications # of Antipsychotic meds at D/C: 1 Approp Antipsych med options 1 - Minimum of three failed multiple trials of monotherapy. 2 - Documented plan to taper to monotherapy due to previous use of multiple meds OR cross-taper in progress at D/C. 3 - Documentation of augmentation of Clozapine. 4 - Justification other than those listed in allowable values 1-3, document here : Discharge Discharge Date: Jan 11, 2017 Discharge Diagnosis: (1) Major depressive disorder, single episode Diagnosis: Principal ICD Code: F32.9 (2) Alcohol withdrawal delirium Diagnosis: Secondary ICD Code: F10.231 Mental Status Exam at Disch patient appears older than stated age, in casual clothing, fair hygiene and grooming, fair eye contact, normal gait, speech rate tone and prosody, mood "Good" affect appropriate, thought process linear, future oriented, thought content denies SI, HI, AVH or delusions, insight fair impulse control fair judgment fair alert and oriented 3 Pt Condition on Discharge: Stable Discharge Disposition: Discharge Home Discharge Instructions Diet Instructions: Heart Healthy Diet Activities you can perform: Regular-No Restrictions Scheduled Appointment: García Gallo Appointment Date: Jan 12, 2017 Appointment Time: 07:30am Discharge Time > 30 minutes Discharge/Advance Care Plan Health Problems: (1) Major depressive disorder, single episode (2) Alcohol withdrawal delirium Goals to promote your health * To prevent worsening of your condition and complications * To maintain your health at the optimal level Directions to meet your goals Take your medications as prescribed Follow your dietary instruction Follow activity as directed Keep your appointments as scheduled Take your immunizations and boosters as scheduled If your symptoms worsen call your PCP, if no PCP go to Urgent Care Center or Emergency Room For 24/ questions related to your inpatient stay or results of tests pending at discharge, please contact Dr. Дмитрий Husain at Smoking is Dangerous to Your Health. Avoid second hand smoking Problem Qualifiers (1) Major depressive disorder, single episode: Дмитрий Husain MD Jan 11, 2017 15:58
--- NOTE | 2017-01-11 16:46 | HHI.PR ---
Subjective Remarks [patient seen earlier at 11 am patient denies cp/sob Objective Vitals Vital Signs Date Time Temp Pulse Resp B/P Pulse Ox O2 Delivery O2 Flow Rate FiO2 01/11/17 05:16 97.6 76 16 115/65 97 01/10/17 18:20 99.3 83 16 117/76 96 I/O 01/10/17 01/10/17 01/10/17 01/11/17 01/11/17 01/11/17 06:59 14:59 22:59 06:59 14:59 22:59 Intake Total 1440 ml 720 ml 120 ml 720 ml Balance 1440 ml 720 ml 120 ml 720 ml Intake Oral 1440 ml 720 ml 120 ml 720 ml # Voids 1 2 2 2 Result Diagram: 01/08/1780101/08/17 08 Objective Remarks AAOx3 nad PERRLA Clear lungs BL S1S2 RRR abdomen soft, NT, ND Procedures none A/P Problem List: (1) Major depressive disorder, single episode ICD Code: F32.9 Status: Acute Plan: Management as per psychiatric team. Patient is currently on Zoloft, Geodon as needed for agitation, Seroquel. (2) Toxic encephalopathy ICD Code: G92 Status: Resolved Plan: Likely secondary to alcohol intoxication and alcohol withdrawal. Now resolved. (3) Orthostatic hypotension ICD Code: I95.1 Status: Acute Plan: Patient was on metoprolol which was discontinued. BP is more stable. BP stable (4) Alcohol intoxication ICD Code: F10.929 Status: Resolved Plan: Patient presented with her alcohol level of 295. (5) Alcohol withdrawal delirium ICD Code: F10.231 Status: Resolved Plan: Placed on CIWA protocol and Librium. Librium was tapered and discontinued as per primary team. (6) Fatty liver ICD Code: K76.0 Status: Acute Plan: Liver ultrasound obtained on 12/30/16 showed fatty liver with mild enlargement. No gallstones or biliary ductal dilatation. LFTs are within normal range. Advised alcohol cessation. (7) Tobacco abuse ICD Code: Z72.0 Status: Acute Plan: Advises smoking cessation. Continue nicotine patch. (8) GERD (gastroesophageal reflux disease) ICD Code: K21.9 Status: Acute Plan: Continue PPI. (9) Macrocytosis ICD Code: D75.89 Status: Acute Plan: Likely related to alcohol use and liver disease. Assessment and Plan GI prophylaxis: Start PPI. DVT prophylaxis: SCDs Discharge Planning The patient is medically clear for discharge. Discharge as per primary. Problem Qualifiers (1) Major depressive disorder, single episode: Billy Harrington MD Jan 11, 2017 16:46
== END 2017-01-11 12:00 | disposition home or self-care (01) | DRG 881 ==
LOC: H4EA 19:00
PROVIDERS: ADMIT Student in an Organized Health Care Education/Training Program; ATTEND Student in an Organized Health Care Education/Training Program
DX: F32.9 Major depressive disorder, single episode, unspecified (principal); G92 Toxic encephalopathy; F10.231 Alcohol dependence with withdrawal delirium; K76.0 Fatty (change of) liver, not elsewhere classified; E83.42 Hypomagnesemia; K21.9 Gastro-esophageal reflux disease without esophagitis; F17.210 Nicotine dependence, cigarettes, uncomplicated; D75.89 Other specified diseases of blood and blood-forming organs; I95.1 Orthostatic hypotension
CPT/HCPCS: 70450; 80048; 80053; 80076; 81001; 82140; 82607; 83735; 84100; 84443; 85025; 86592; 86703; 93005; J1630; J2060; J3475; J3486; J7030